=== PATIENT | female | born 1940 | race Caucasian/White ===

== ENCOUNTER 2016-06-17 08:05 | Emergency (ER) ==
--- NOTE | 2016-06-17 09:15 | PROVIDER DOCUMENTATION ---
HPI-Head Injury - General Source: patient - History of Present Illness-Head Injury Head Injury Location: reports: frontal Other injuries associated with incident:: reports: neck Quality of Pain: reports: dull Severity: reports: moderate Onset/Duration: reports: abrupt, this morning Timing: reports: still present Method of Injury: reports: direct blow, fell Any recent trauma/injury?: reports: none Loss of Consciousness: no loss of consciousness Modifying Factors: improves with: nothing Injury Associated Symptoms: reports: back/neck pain, chest pain, headaches, nausea. denies: dizziness, shortness of breath, vomiting Locality of Occurance: Home Similar Symptoms Previously?: No Recently seen or treated by another doctor?: No <Marco Antonio Montero - Last Filed: 06/17/16 13:04> - General Source: patient Unable to obtain history due to:: urgency <Antoine Melo I - Last Filed: 06/17/16 13:12> - General Chief Complaint: Fall Stated Complaint: FALL, HEAD/NECK PAIN Time Seen by Provider: 06/17/16 09:11 Allergies/Adverse Reactions: Patient Allergies Allergy/AdvReac Type Severity Reaction Status Date / Time prochlorperazine edisylate * Allergy Severe SEIZURES Verified 06/17/16 08:40 [From Compazine] codeine [Codeine] Allergy Mild ITCHING Verified 06/17/16 08:40 prochlorperazine maleate * Allergy Mild ITCHING Verified 06/17/16 08:40 [From Compazine] adhesive AdvReac Intermediate ITCHING Verified 06/17/16 08:40 tramadol AdvReac Mild ANXIETY Verified 06/17/16 08:40 tramadol HCl * AdvReac Mild ANXIETY Verified 06/17/16 08:40 [From Ultracet] ketorolac AdvReac Unknown Unknown Verified 06/17/16 08:40 Home Medications: Home Medication List Medication Instructions Recorded Confirmed Last Taken Type Omeprazole [Prilosec] 20 mg PO DAILY@0700 #0 capsule 10/22/13 06/17/16 06/16/16 Rx Ranolazine E.r. [Ranexa] 500 mg PO Q12H #0 tablet 10/22/13 06/17/16 06/16/16 Rx Pramipexole Di-HCl [Pramipexole 0.125 mg PO QHS 04/08/14 06/17/16 06/16/16 History Dihydrochloride] Citalopram [Celexa] 20 mg PO QAM 08/22/14 06/17/16 06/16/16 History Hydrochlorothiazide 25 mg PO QAM 08/22/14 06/17/16 06/16/16 History Mirtazapine [Remeron] 45 mg PO QHS 08/22/14 06/17/16 06/16/16 History Lisinopril 10 mg PO QAM 10/04/14 06/17/16 06/16/16 History Insulin Glargine [Lantus] 20 unit SUBQ QHS 01/09/15 06/17/16 06/16/16 History Insulin Lispro [Humalog] 12 unit SQ AC 01/09/15 06/17/16 06/16/16 History Simvastatin 20 mg PO QHS 01/09/15 06/17/16 06/16/16 History Isosorbide Mononitrate E.r. [Imdur] 30 mg PO QAM 08/08/15 06/17/16 06/16/16 History Cyclobenzaprine [Flexeril] 10 mg PO TID #20 tablet 03/11/16 06/17/16 06/16/16 Rx Diphenhydramine [Benadryl] 25 mg PO PRN PRN 06/17/16 06/17/16 Unknown History Hydrocodone/Acetaminophen [[place] 1 each PO TID 06/17/16 06/17/16 06/16/16 History 10-325 Tablet] - History of Present Illness-Head Injury Nature of Presenting Problem: pt is a 76 y/o F that presents to the ER with headache and neck pain after falling asleep on toilet and landing face first. She denies any loc. She has no bruising or lacerations. She has a long standing history of falling (Marco Antonio Montero) Review of Systems - Adult - REVIEW OF SYSTEMS - ADULT Constitutional: reports: no symptoms reported Eyes: denies: decreased vision, blurred vision, double vision Ears, Nose, Mouth & Throat: denies: ear discharge, epistaxis, mouth/dental pain , mouth swelling Cardiovascular: denies: chest pain, palpitations Respiratory: reports: no symptoms reported Gastrointestinal: reports: nausea, vomiting. denies: abdominal pain, diarrhea Genitourinary: reports: no symptoms reported Musculoskeletal: reports: neck pain. denies: back pain, joint pain Integumentary: reports: no symptoms reported Neurological: reports: headache/migraines. denies: dizziness/vertigo, numbness , tremors Psychiatric: reports: no symptoms reported Endocrine: reports: no symptoms reported Hematologic/Lymphatic: reports: no symptoms reported Allergic/Immunologic: reports: no symptoms reported All Other Systems: Reviewed and Negative <Marco Antonio Montero - Last Filed: 06/17/16 13:04> Past History - Adult - PAST MEDICAL HISTORY-ADULT Review of Records: reports: Old Records Reviewed, Nursing Assessment Review, Medications Reviewed Cardiovascular: reports: CHF, HTN, hyperlipidemia, murmur (heart) Respiratory: reports: COPD Gastrointestinal: reports: GERD Musculoskeletal: reports: arthritis, chronic pain, neck/back injury Neurological: reports: Seizures/Epilepsy Psychiatric: reports: anxiety, depression Endocrine/Immune: reports: Diabetes Other Conditions: reports: MRSA - PRIOR SURGERIES/PROCEDURES Surgical/Procedure History: reports: 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), hysterectomy, orthopedic (extremity), back/neck (neck and back Sx), other (tumors removed from the left arm and) - IMMUNIZATION STATUS Childhood Immunizations: See Nurse Assessment Flu Vaccine: See Nurse Assessment - FAMILY HISTORY Family History: reviewed, not pertinent, mental illness (suffers from depression ) - SOCIAL HISTORY Smoking: non-smoker Living Situation: family <Marco Antonio Montero - Last Filed: 06/17/16 13:04> Physical Exam- Neurological - Physical Exam-Neuro Initial Vital Signs Reviewed: Yes General Appearance: alert, no apparent distress Eye Exam: bilateral eye: normal inspection, PERRL HENMT: normocephalic/atraumatic, moist mucous membranes, normal ENT inspection Head Injury: other. negative: Cleaning's Sign, contusions, ecchymosis, lacerations, swelling Neck: other (c-collar applied [employer]) Respiratory: chest non-tender, lungs clear, normal breath sounds, no respiratory distress, no accessory muscle use Cardiovascular: regular rate, rhythm, no edema, no murmur Abdominal Exam: normal bowel sounds, non tender, soft, no organomegaly, no pulsatile mass Extremity: normal range of motion, non-tender, normal inspection, normal capillary refill, pelvis stable braid cutter Exam: normal hearing, normal speech, PERRL Motor/Sensory: no motor deficit, no sensory deficit Neurologic: braid cutter II-XII nml as tested, no motor/sensory deficits Integumentary: normal color, normal turgor, warm/dry Psych/Mental Status: normal mood/affect, normal thought content, normal thought process, oriented x 3 - Glascow Coma Scale Best Eye Response: (4) open spontaneously Best Verbal Response: (3) inappropriate words Total Glascow Score: 15 <Marco Antonio Montero - Last Filed: 06/17/16 13:04> Progress - REASSESSMENT Reassessment #1 Time Reassessed: 13:04 Status: improving Reassessment Comment: Bp improving - CT/MRI 1 CT Study: Head Impression: Normal CT Results: nml per 2 CT Study: Cervical Spine Impression: Abnormal CT Results: postsurgical changes, DDD, no fx <Marco Antonio Montero - Last Filed: 06/17/16 13:04> <Antoine Melo I - Last Filed: 06/17/16 13:12> - PLAN OF CARE/RESULTS Progress/Plan/Lab Results: plan of care-head/cspine Vital Signs Temp Pulse Resp BP Pulse Ox 06/17/16 08:14 98.2 F 53 L 18 207/93 99 prochlorperazine edisylate * [From Compazine] Allergy (Severe, Verified 08:40) SEIZURES codeine [Codeine] Allergy (Mild, Verified 06/17/16 08:40) ITCHING prochlorperazine maleate * [From Compazine] Allergy (Mild, Verified 06/17/16 08: 40) ITCHING adhesive Adverse Reaction (Intermediate, Verified 06/17/16 08:40) ITCHING tramadol Adverse Reaction (Mild, Verified 06/17/16 08:40) ANXIETY tramadol HCl * [From Ultracet] Adverse Reaction (Mild, Verified 06/17/16 08:40) ANXIETY ketorolac Adverse Reaction (Unknown, Verified 06/17/16 08:40) Unknown "ANXIETY ATTACK AND SHAKING" Omeprazole [Prilosec] 20 mg PO DAILY@0700 #0 capsule 10/22/13 Ranolazine E.r. [Ranexa] 500 mg PO Q12H #0 tablet 10/22/13 Pramipexole Di-HCl [Pramipexole Dihydrochloride] 0.125 mg PO QHS 04/08/14 Citalopram [Celexa] 20 mg PO QAM 08/22/14 Hydrochlorothiazide 25 mg PO QAM 08/22/14 Mirtazapine [Remeron] 45 mg PO QHS 08/22/14 Lisinopril 10 mg PO QAM 10/04/14 Insulin Glargine [Lantus] 20 unit SUBQ QHS 01/09/15 Insulin Lispro [Humalog] 12 unit SQ AC 01/09/15 Simvastatin 20 mg PO QHS 01/09/15 Isosorbide Mononitrate E.r. [Imdur] 30 mg PO QAM 08/08/15 Cyclobenzaprine [Flexeril] 10 mg PO TID #20 tablet 03/11/16 Diphenhydramine [Benadryl] 25 mg PO PRN PRN 06/17/16 Hydrocodone/Acetaminophen [[place] 10-325 Tablet] 1 each PO TID 06/17/16 Orders Category Date Time Status HEAD/C-SPINE W/O CONTRAST [CT] Stat Exams 06/17/16 08:12 Draft pt will be d/c home, bp improved, pt was clinically and neurologically stable ( Marco Antonio Montero) Departure - Departure Time of Disposition Order: 13:05 Certified Medical Emergency: Emergent <Marco Antonio Montero - Last Filed: 06/17/16 13:04> <Antoine Melo I - Last Filed: 06/17/16 13:12> - Departure DIAGNOSIS: Uncontrolled hypertension Head injury Qualifiers: Encounter type: initial encounter Qualified Code(s): S09.90XA - Unspecified injury of head, initial encounter Neck strain Qualifiers: Encounter type: initial encounter Qualified Code(s): S16.1XXA - Strain of muscle, fascia and tendon at neck level, initial encounter Fall from toilet seat Qualifiers: Encounter type: initial encounter Qualified Code(s): W18.11XA - Fall from or off toilet without subsequent striking against object, initial encounter Disposition: HOME 01 Condition: Stable Additional Instructions: T ED Follow Up Instructions: You have been treated by a care provider in the Emergency Department. These instructions are being provided to you so you can have an understanding of how to care for yourself upon discharge. Upon discharge from the Emergency Department, you are responsible for making arrangements for follow-up care by a physician of your choice. Take all prescribed medications as directed. Return to the Emergency Department immediately for any new or worsening symptoms. You may call the Physician Referral phone number at [phone] to obtain a list of Physicians who are taking new patients. Referrals: Benny Metcalf MD [Primary Care Provider] - Call for Appoint. 1-2days Instructions: Head Injury, Adult, Cervical Strain and Sprain with Rehab- SportsMed, Hypertension Attestation - Scribe Verification/Attestation Scribe:: Marco Antonio Montero Acting as Scribe for:: Antoine Melo Scribe documention review:: This chart was documented by a scribe and accurately reflects the service the provider performed and the decisions made by the provider. <Marco Antonio Montero - Last Filed: 06/17/16 13:04> Physician Attestation - Physician Attestation I, the provider, attest to the following statement:: Antoine Melo Physician documentation Attestation:: This documentation recorded by the scribe accurately reflects the service I personally performed and the decisions made by me. <Marco Antonio Montero - Last Filed: 06/17/16 13:04> - Physician Attestation I, the provider, attest to the following statement:: Antoine Melo Physician documentation Attestation:: This documentation recorded by the scribe accurately reflects the service I personally performed and the decisions made by me. <Antoine Melo I - Last Filed: 06/17/16 13:12>
--- NOTE | 2016-06-17 09:20 | Diag Imaging Result Document ---
PROCEDURE NAME: HEAD/C-SPINE W/O CONTRAST - 06/17/2016 CT HEAD WITHOUT CONTRAST: A dose-reduction protocol was used. COMPARISON: 06/11/2015. FINDINGS: There are mild atrophic changes similar to the previous exam. There is no evidence of infarct, although acute infarcts may not be immediately visible. There is no evidence of intracranial hemorrhage, mass effect, or midline shift. There is no skull fracture. IMPRESSION: No evidence of intracranial injury. No intracranial hemorrhage or mass effect. CT CERVICAL SPINE WITHOUT CONTRAST: A dose-reduction protocol was used. Axial and reformatted sagittal and coronal images are obtained. COMPARISON: 04/02/2015. FINDINGS: There are postsurgical changes of anterior fusion at C3-4-5-6, similar to the previous exam. 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 There is severe degenerative disease involving multilevel facets. There is 2 mm anterolisthesis at C6-7 which likely relates to stiffness associated with the above-mentioned fusion combination with severe degenerative changes of the C6-7 facets. There is no other subluxation identified. There is no fracture identified. There are postsurgical changes of multilevel posterior decompression noted at the upper thoracic spine. IMPRESSION: Postsurgical changes of anterior fusion at C3-4-5-6. 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 Severe degenerative disease involving multilevel facets, particularly at C6-7. 2 mm anterolisthesis at C6-7 which likely relative stiffness above this level from the fusion in combination with severe facet degeneration at this level. No evidence of injury to the cervical spine otherwise. No evidence of fracture. [facility]
[2016-06-17 10:25] LABS: MANUAL DIFF NEEDED? NO
[2016-06-17 10:28] LABS: BASO% 0.7 % (0.0-0.8); EOS# 0.17 X1000 (0.0-0.7); EOS% 2.9 % (0.0-10.0); HEMATOCRIT 34.1 % (37.0-47.0); HEMOGLOBIN 10.8 g/dL (12.0-16.0); IMM GRAN# 0.02 X1000 (0.0-0.04); IMM GRAN% 0.3 % (0.0-0.5); LYMPH# 1.81 X1000 (1.2-3.4); MCH 29.7 PG (27-31); MCHC 31.7 g/dL (33-37); MCV 93.7 FL (81-99); MONO# 0.48 X1000 (0.11-0.59); MONO% 8.2 % (1.7-9.3); MPV 10.4 FL (7.4-10.4); NEUT% 56.9 % (42.2-75.2); PLT 177 X1000 (130-400); RBC 3.64 XMIL (4.2-5.4)
[2016-06-17] MEDS ORDERED: NITROGLYCERIN LINGUAL SPRAY SL PRN (10:49)
[2016-06-17] MEDS ORDERED: CATAPRES PO ONE (10:50)
[2016-06-17 10:53] LABS: CALCIUM 9.2 mg/dL (8.8-10.2); POTASSIUM 5.7 mmol/L (3.5-5.1); TOTAL BILIRUBIN 0.22 mg/dL (0.20-1.00); TOTAL PROTEIN 6.7 g/dL (6.3-8.3)
[2016-06-17] MEDS ORDERED: NITROGLYCERIN ONE (10:55)
--- NOTE | 2016-06-17 13:52 | EKG Report ---
Test Performed on : 06/17/2016 11:03:54 AM Test Reason : ED. Not ordered in [place] Blood Pressure : / mmHG Vent. Rate : 053 BPM Atrial Rate : 053 BPM P-R Int : 156 ms QRS Dur : 078 ms QT Int : 442 ms P-R-T Axes : 077 -21 030 degrees QTc Int : 414 ms Sinus bradycardia. with sinus arrhythmia. Septal infarct , age undetermined Abnormal ECG When compared with ECG of 12-MAR-2016 15:25, Questionable change in QRS duration Unconfirmed Result
[2016-06-17] MEDS ORDERED: TORADOL IM ONE (14:00)
[2016-06-17 14:19] VITALS: BP 182/83
== END 2016-06-17 14:00 | disposition home or self-care (01) ==
LOC: EDBD → ED 08:05
DX: S16.1XXA Strain of muscle, fascia and tendon at neck level, initial encounter (principal); S09.90XA Unspecified injury of head, initial encounter; I10 Essential (primary) hypertension; M54.2 Cervicalgia; R51 Headache; R11.2 Nausea with vomiting, unspecified; I50.9 Heart failure, unspecified; M50.323 Other cervical disc degeneration at C6-C7 level; Z79.899 Other long term (current) drug therapy; E78.5 Hyperlipidemia, unspecified; J44.9 Chronic obstructive pulmonary disease, unspecified; K21.9 Gastro-esophageal reflux disease without esophagitis; M19.90 Unspecified osteoarthritis, unspecified site; G89.29 Other chronic pain; E11.9 Type 2 diabetes mellitus without complications; F41.9 Anxiety disorder, unspecified; F32.9 Major depressive disorder, single episode, unspecified; Z79.4 Long term (current) use of insulin; Z86.14 Personal history of Methicillin resistant Staphylococcus aureus infection; W18.11XA Fall from or off toilet without subsequent striking against object, initial encounter
CPT/HCPCS: 70450; 72125; 80053; 85025; 93005

== ENCOUNTER 2016-06-22 16:00 | Inpatient (IN) ==
[2016-06-22] MEDS ORDERED: DILAUDID IV ONE (16:26)
[2016-06-22] MEDS ORDERED: ZOFRAN IV ONE (16:26)
--- NOTE | 2016-06-22 16:38 | PROVIDER DOCUMENTATION ---
HPI-General Adult - General Chief Complaint: Low Blood Sugar Stated Complaint: Low Blood Sugar Time Seen by Provider: 06/22/16 16:04 Source: patient Allergies/Adverse Reactions: Patient Allergies Allergy/AdvReac Type Severity Reaction Status Date / Time prochlorperazine edisylate * Allergy Severe SEIZURES Verified 06/22/16 16:17 [From Compazine] codeine [Codeine] Allergy Mild ITCHING Verified 06/22/16 16:17 prochlorperazine maleate * Allergy Mild ITCHING Verified 06/22/16 16:17 [From Compazine] adhesive AdvReac Intermediate ITCHING Verified 06/22/16 16:17 tramadol AdvReac Mild ANXIETY Verified 06/22/16 16:17 tramadol HCl * AdvReac Mild ANXIETY Verified 06/22/16 16:17 [From Ultracet] ketorolac AdvReac Unknown Unknown Verified 06/22/16 16:17 Home Medications: Home Medication List Medication Instructions Recorded Confirmed Last Taken Type Omeprazole [Prilosec] 20 mg PO DAILY@0700 #0 capsule 10/22/13 06/22/16 06/16/16 Rx Ranolazine E.r. [Ranexa] 500 mg PO Q12H #0 tablet 10/22/13 06/22/16 06/16/16 Rx Pramipexole Di-HCl [Pramipexole 0.125 mg PO QHS 04/08/14 06/22/16 06/16/16 History Dihydrochloride] Citalopram [Celexa] 20 mg PO QAM 08/22/14 06/22/16 06/16/16 History Hydrochlorothiazide 25 mg PO QAM 08/22/14 06/22/16 06/16/16 History Mirtazapine [Remeron] 45 mg PO QHS 08/22/14 06/22/16 06/16/16 History Lisinopril 10 mg PO QAM 10/04/14 06/22/16 06/16/16 History Insulin Glargine [Lantus] 20 unit SUBQ QHS 01/09/15 06/22/16 06/16/16 History Insulin Lispro [Humalog] 12 unit SQ AC 01/09/15 06/22/16 06/16/16 History Simvastatin 20 mg PO QHS 0906/22/16 06/16/16 History Isosorbide Mononitrate E.r. [Imdur] 30 mg PO QAM 08/08/15 06/22/16 06/16/16 History Cyclobenzaprine [Flexeril] 10 mg PO TID #20 tablet 03/11/16 06/22/16 06/16/16 Rx Diphenhydramine [Benadryl] 25 mg PO PRN PRN 06/17/16 06/22/16 Unknown History Hydrocodone/Acetaminophen [Buxton 1 each PO TID 06/17/16 06/22/16 06/16/16 History 10-325 Tablet] - History of Present Illness -Gen Adult Nature of Presenting Problems: 76 year old WF presents with c/o low blood sugar. pt was found by EMS unresponsive in bed, they performed a BGand it was in the 50's, they gave her oral glucose and called EMS. EMS found her BG to be 64, gave glucagon and her LOC increased. upon arrival here, BG 109. when asked what brings her to the ED, she reports she has been sick for 2 weeks. she reports syncopal episodes on almost a daily basis, last of which was this morning, when she awoke on the floor of her kitchen. she reports last recollection she was pouring a cup of coffee. pt reports she feels short of breath with palpitations in the chest just prior to losing consciousness. pt reports she has been taking her insulin regularly and has been eating. her AM BS today with 150. she reports she did not recall eating lunch or performing a BG prior to lunch. associated symptoms include generalized weakness with difficulty walking. pt reports she normally walks with a walker and it has become more difficult over the last 2 weeks. denies fever, chills, nausea, vomiting, diarrhea. pt reports low back pain with these frequent falls, she reports a history of chronic low back pain and has had 22 spinal surgeries. Location of Pain/Injury: reports: back Pain Radiation: reports: no radiation Quality of Pain: reports: aching, dull Severity: reports: mild, moderate Onset/Duration: reports: other (2 weeks) Timing: reports: still present, constant, getting worse Context/Activities at Onset: reports: other (fall/syncope) Modifying Factors: improves with: nothing. worse with: analgesics (pt reports she takes Buxton 10 without relief) Associated Symptoms: reports: back/neck pain Similar Symptoms Previously?: Yes Recently seen or treated by another doctor?: No - Diabetes Related Context Context: reports: low blood sugar Review of Systems - Adult - REVIEW OF SYSTEMS - ADULT Constitutional: reports: no symptoms reported. denies: chills, fever, fatique, weight gain, weight loss Eyes: reports: no symptoms reported. denies: discharge, blurred vision, double vision, redness Ears, Nose, Mouth & Throat: reports: no symptoms reported. denies: ear discharge, ear pain, nose pain, loose teeth, throat pain, throat swelling Cardiovascular: reports: see HPI, palpitations, syncope. denies: chest pain, edema, heart murmur, irregular heart rate, orthopnea, poor circulation, PND Respiratory: reports: see HPI, shortness of breath. denies: chronic cough, cough, wheezing Gastrointestinal: reports: no symptoms reported. denies: abdominal pain, hematemesis, constipation, diarrhea, difficulty swallowing, frequent heartburn, nausea, poor appetite, rectal bleeding, vomiting Genitourinary: reports: no symptoms reported. denies: dysuria, hematuria, urgency Musculoskeletal: reports: see HPI, back pain. denies: bone pain, frequent leg cramps, joint pain, joint swelling, muscle aches, muscle weakness, neck pain Integumentary: reports: no symptoms reported. denies: hives, itching, rash, skin sores/ulcer Neurological: reports: see HPI, dizziness/vertigo, syncope. denies: ataxia, headache/migraines, loss of balance, numbness, paresthesia, seizure, slurred speech, tremors Psychiatric: reports: no symptoms reported Endocrine: reports: no symptoms reported. denies: change in skin pigment, cold intolerance, heat intolerance, increased thirst Hematologic/Lymphatic: reports: no symptoms reported. denies: blood clots, low blood count, prolonged bleeding, swollen lymph nodes Allergic/Immunologic: reports: no symptoms reported. denies: frequent infections All Other Systems: Reviewed and Negative Past History - Adult - PAST MEDICAL HISTORY-ADULT Review of Records: reports: Old Records Reviewed, Nursing Assessment Review, Medications Reviewed, Social history reviewed & non-contributory. 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 - PRIOR SURGERIES/PROCEDURES Surgical/Procedure History: reports: 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 negative: mild distress, moderate distress, severe distress, lethargic, slow to respond, obtunded, combative - EYES Eyes: PERRL/EOMI, pink conjunctivae. negative: conjuctival exudate, EOM palsy, meningismus, pale conjunctivae, photophobia, sclera injected, scleral icterus, subconjunctival hemorrhage, sunken eyes - HEAD, EARS, NOSE, MOUTH & THROAT HENMT: normocephalic/atraumatic, moist mucous membranes, normal ENT inspection - NECK Neck: non-tender, full range of motion, supple, normal inspection. negative: C- spine tenderness, limited range of motion, tender lateral, tender midline - RESPIRATORY Respiratory: chest non-tender, lungs clear, normal breath sounds, no pleuratic chest pain, no respiratory distress, no accessory muscle use. negative: respiratory distress, decreased breath sounds, accessory muscle use, crackles, rales, rhonchi, stridor, wheezing - CARDIOVASCULAR Cardiovascular: normal peripheral pulses, regular rate, rhythm, no edema, no gallop, no JVD, no murmur. negative: JVD, bradycardia, tachycardia, diastolic murmur, systolic murmur, gallop/S3, gallop/S4 - CHEST (BREASTS) Chest/Breast: deferred - GASTROINTESTINAL (ABDOMEN) Abdominal Exam: normal bowel sounds, non tender, soft, no organomegaly. negative: abnormal bowel sounds, distended, guarding, rigid, rebound, tenderness , hernia, mass, hepatomegaly, spleenomegaly, McBurney's point tenderness, Dailey 's sign, obturator sign, psoas, Rovsing's sign - GENITOURINARY Female Genitalia/Pelvic Exam: deferred Rectal Exam: deferred - LYMPHATIC Lymphatic: no adenopathy - MUSCULOSKELETAL Back Exam: normal inspection, no CVA tenderness, vertebral tenderness (diffuse vertebral tenderness, upon exam, pt reports this is her chronic backpain, she denies any new back pain.). negative: no vertebral tenderness, CVA tenderness, decreased range of motion, swelling Extremity: normal range of motion, non-tender, normal gait, no pedal edema, no calf tenderness, normal capillary refill, pelvis stable, deformity (LUE with nerve damage). negative: normal inspection, abnormal NV exam, calf tenderness, erythema, inflammation, joint effusion, pulse deficit, pedal edema, slow capillary refill, swelling, tenderness Peripheral Pulses: radial (R): 3+, radial (L): 3+, dorsalis-pedis (R): 3+, dorsalis-pedis (L): 3+ - SKIN Integumentary: normal color, normal turgor, warm/dry. negative: abrasion(s), pallor, petechiae, purpura, rash, swelling - NEUROLOGIC Neurologic: collaborative teacher II-XII nml as tested, grossly normal, no motor/sensory deficits . negative: focal weakness, motor weakness, sensory deficit - PSYCHIATRIC Psych/Mental Status: normal mood/affect, normal thought content, normal thought process, oriented x 3 Progress - PLAN OF CARE/RESULTS Progress/Plan/Lab Results: Laboratory Tests 06/22/16 06/22/16 06/22/16 17:15 18:15 18:15 WBC 6.19 RBC 3.44 L Hgb 10.3 L Hct 31.8 L MCV 92.4 MCH 29.9 MCHC 32.4 L RDW Std Deviation 12.9 Plt Count 160 MPV 10.4 Immature Gran % (Auto) 0.0 Neut % (Auto) 71.5 Lymph % (Auto) 18.3 L Callahan % (Auto) 8.7 Eos % (Auto) 1.0 Baso % (Auto) 0.5 Immature Gran # (Auto) 0.00 Neut # (Auto) 4.43 Lymph # (Auto) 1.13 L Callahan # (Auto) 0.54 Eos # (Auto) 0.06 Baso # (Auto) 0.03 PT INR PTT (Actin FS) Specimen Type ARTERIAL Sample Site R BRACHIAL pH 7.32 L pCO2 48 H pO2 78 HCO3 23.5 Base Excess -1.7 Oxyhemoglobin 93.7 L ABG O2 Sat (Calculated) 14.3 L ABG O2 Saturation 96.9 ABG Carboxyhemoglobin 1.50 ABG Methemoglobin 1.7 H Aristides Test NO A-a O2 Difference 12.0 Total Hemoglobin 10.8 L Lactate 1.70 Blood Gas Modality ROOM AIR FiO2 % 21.0 Sodium Potassium Chloride Carbon Dioxide Anion Gap BUN Creatinine Estimated GFR/1.73 m2 BUN/Creatinine Ratio Glucose Calculated Osmolality Calcium Total Bilirubin AST ALT Alkaline Phosphatase Creatine Kinase Troponin T Total Protein Albumin Globulin Albumin/Globulin Ratio Plasma Lactate Urine Source Urine Color Urine Turbidity Urine pH Ur Specific [place] Urine Protein Ur Glucose (Stick) Ur Ketones (Stick) Urine Blood Urine Nitrite Urine Bilirubin Urobilinogen Dipstick Urine Leukocytes Urine Opiates Screen Ur Oxycodone Screen Ur Methadone, Qual Ur Barbiturates Screen Ur Phencyclidine Scrn Ur Amphetamines Screen U Benzodiazepines Scrn Urine Cocaine Screen U Cannabinoids Screen Plasma/Serum Ethyl Alc Acetone Level 06/22/16 06/22/16 06/22/16 18:15 18:15 18:15 WBC RBC Hgb Hct MCV MCH MCHC RDW Std Deviation Plt Count MPV Immature Gran % (Auto) Neut % (Auto) Lymph % (Auto) Callahan % (Auto) Eos % (Auto) Baso % (Auto) Immature Gran # (Auto) Neut # (Auto) Lymph # (Auto) Callahan # (Auto) Eos # (Auto) Baso # (Auto) PT 10.7 INR 1.01 PTT (Actin FS) 23.8 Specimen Type Sample Site pH pCO2 pO2 HCO3 Base Excess Oxyhemoglobin ABG O2 Sat (Calculated) ABG O2 Saturation ABG Carboxyhemoglobin ABG Methemoglobin Aristides Test A-a O2 Difference Total Hemoglobin Lactate Blood Gas Modality FiO2 % Sodium 134 L Potassium 4.8 Chloride 97 L Carbon Dioxide 23 L Anion Gap 14 BUN 21 Creatinine 1.0 H Estimated GFR/1.73 m2 54 BUN/Creatinine Ratio 21 Glucose 263 H Calculated Osmolality 280 Calcium 7.7 L Total Bilirubin 0.23 AST 13 ALT 15 Alkaline Phosphatase 63 Creatine Kinase 34 Troponin T Total Protein 6.0 L Albumin 3.6 Globulin 2.4 Albumin/Globulin Ratio 1.5 Plasma Lactate 2.0 Urine Source Urine Color Urine Turbidity Urine pH Ur Specific [place] Urine Protein Ur Glucose (Stick) Ur Ketones (Stick) Urine Blood Urine Nitrite Urine Bilirubin Urobilinogen Dipstick Urine Leukocytes Urine Opiates Screen Ur Oxycodone Screen Ur Methadone, Qual Ur Barbiturates Screen Ur Phencyclidine Scrn Ur Amphetamines Screen U Benzodiazepines Scrn Urine Cocaine Screen U Cannabinoids Screen Plasma/Serum Ethyl Alc Acetone Level NEGATIVE 06/22/16 06/22/16 06/22/16 18:15 19:25 19:25 WBC RBC Hgb Hct MCV MCH MCHC RDW Std Deviation Plt Count MPV Immature Gran % (Auto) Neut % (Auto) Lymph % (Auto) Callahan % (Auto) Eos % (Auto) Baso % (Auto) Immature Gran # (Auto) Neut # (Auto) Lymph # (Auto) Callahan # (Auto) Eos # (Auto) Baso # (Auto) PT INR PTT (Actin FS) Specimen Type Sample Site pH pCO2 pO2 HCO3 Base Excess Oxyhemoglobin ABG O2 Sat (Calculated) ABG O2 Saturation ABG Carboxyhemoglobin ABG Methemoglobin Aristides Test A-a O2 Difference Total Hemoglobin Lactate Blood Gas Modality FiO2 % Sodium Potassium Chloride Carbon Dioxide Anion Gap BUN Creatinine Estimated GFR/1.73 m2 BUN/Creatinine Ratio Glucose Calculated Osmolality Calcium Total Bilirubin AST ALT Alkaline Phosphatase Creatine Kinase Troponin T < 0.010 Total Protein Albumin Globulin Albumin/Globulin Ratio Plasma Lactate Urine Source CATH Urine Color YELLOW Urine Turbidity CLEAR Urine pH 6.0 Ur Specific [place] 1.014 Urine Protein NEGATIVE Ur Glucose (Stick) TRACE Ur Ketones (Stick) NEGATIVE Urine Blood NEGATIVE Urine Nitrite NEGATIVE Urine Bilirubin NEGATIVE Urobilinogen Dipstick NORMAL Urine Leukocytes NEGATIVE Urine Opiates Screen PRESUMPTIVE POSITIVE A Ur Oxycodone Screen NONE DETECTED Ur Methadone, Qual NONE DETECTED Ur Barbiturates Screen NONE DETECTED Ur Phencyclidine Scrn NONE DETECTED Ur Amphetamines Screen NONE DETECTED U Benzodiazepines Scrn PRESUMPTIVE POSITIVE A Urine Cocaine Screen NONE DETECTED U Cannabinoids Screen NONE DETECTED Plasma/Serum Ethyl Alc Acetone Level Orders Category Date Time Status Cardiac Monitoring DIRECTED Care 06/22/16 16:21 Active Finger Stick Blood Sugar (ED) DIRECTED Care 06/22/16 16:21 Active Finger Stick Blood Sugar (ED) Q30M PRN Care 06/22/16 16:20 Active Saline Loc NOW Care 06/22/16 16:21 Active CHEST-2 VIEWS [RAD] Stat Exams 06/22/16 16:24 Completed HEAD W/O CONTRAST [CT] Stat Exams 06/22/16 16:24 Draft ABG [RESP] Routine Lab 06/22/16 17:15 Completed ACETONE SERUM [CHEM] Stat Lab 06/22/16 18:15 Completed ALCOHOL BLOOD Stat Lab 06/22/16 18:15 Completed BLOOD CULTURE [BLDCUL] Stat Lab 06/22/16 17:49 Results CBC WITH ELECTRONIC DIFF [HEME] Stat Lab 06/22/16 18:15 Completed CK PROFILE [SP CHEM] Stat Lab 06/22/16 18:15 Completed COMPREHENSIVE METABOLIC PANEL [CHEM] Stat Lab 06/22/16 18:15 Completed LACTATE, PLASMA [CHEM] Stat Lab 06/22/16 18:15 Completed PROTIME WITH INR [COAG] Stat Lab 06/22/16 18:15 Completed PTT [COAG] Stat Lab 06/22/16 18:15 Completed TROPONIN T Stat Lab 06/22/16 18:15 Completed URINALYSIS W/POSS RFLX CULT [URINALYSIS] Stat Lab 06/22/16 19:25 Results URINE DRUG SCREEN Stat Lab 06/22/16 19:25 Completed Hydromorphone [Dilaudid] Med 06/22/16 16:26 Discontinued 0.5 mg IV NOW ONE Ondansetron [Zofran] Med 06/22/16 16:26 Discontinued 4 mg IV NOW ONE Pulse Oximetry Stat Oth 06/22/16 16:21 Active EKG [EKG] Stat Ther 06/22/16 16:21 Ordered Vital Signs - 24 hr 06/22/16 06/22/16 06/22/16 16:05 16:30 17:23 Temperature 97.9 F Pulse Rate 60 67 71 Respiratory 16 Rate Blood Pressure 152/62 158/64 O2 Sat by Pulse 97 96 99 Oximetry 06/22/16 17:42 Temperature Pulse Rate 73 Respiratory 17 Rate Blood Pressure 158/64 O2 Sat by Pulse 99 Oximetry - REASSESSMENT Reassessment #1 Time Reassessed: 19:54 Status: improving (remains awake, alert. BG stable) - XRAY 1 XRAY Study: Chest Impression: Normal (no acute abnormality per Dr. Page) - CT/MRI 1 CT Study: Head Impression: Normal (no hemorrhage, mild atrophy. per Dr. Page) - CONSULTS/PCP/HOSPITALIST Notification #1 *Consult/PCP/Hospitalist*: Dr. Baker Time Discussed: 19:53 Consult Disposition: Will see in ED, Admit Departure - Departure Time of Disposition Order: 19:51 DIAGNOSIS: Syncope and collapse, Hypoglycemia Disposition: ADMITTED INPATIENT 09 Certified Medical Emergency: Emergent Condition: Stable Attestation - Physician/ GEN Attestation Patient care was provided by Advanced Practice Provider:: Yes Advanced Practice Provider:: Janna Lehman Advanced Practice Provider documentation review:: The Mid-level provider documentation, treatment plan and medical decision making was reviewed by the physician who agrees with all treatment and medical decision making by the MLP.
--- NOTE | 2016-06-22 17:14 | Diag Imaging Result Document ---
PROCEDURE NAME: CHEST-2 VIEWS - 06/22/2016 FRONTAL AND LATERAL CHEST, TWO VIEWS: COMPARISON: 10/04/2015. FINDINGS: The lungs are well expanded. The heart is not enlarged. The vessels are not distended. No pneumonia. No pleural effusions. There has been extensive surgery to the lower thoracic and lumbar spine. There has also been prior surgery to the lower neck. IMPRESSION: No acute abnormality.
[2016-06-22 17:18] LABS: ALLEN TEST NO; BE -1.7 mmoll (-3.0-3.0); BLOOD TYPE ARTERIAL; DRAW SITE R BRACHIAL; METHB 1.7 % (0.0-1.5); MODALITY ROOM AIR; O2(CT) 14.3 mL/dL (15.0-23.0); PCO2(98.6) 48 mmHg (35-45); PO2(98.6) 78 mmHg (60-100); SAMPLE BLOOD; SAO2 96.9 % (95.0-100.0); THB 10.8 g/dL (11.5-17.4); pH(98.6) 7.32 (7.35-7.45)
--- NOTE | 2016-06-22 18:00 | Diag Imaging Result Document ---
PROCEDURE NAME: HEAD W/O CONTRAST - 06/22/2016 CT BRAIN WITHOUT CONTRAST: FINDINGS: No parenchymal hemorrhage. No epidural or subdural hematoma. No subarachnoid hemorrhage. Mild atrophy. No mass identified on this noncontrasted exam. No hydrocephalus. No sinus opacification. IMPRESSION: 1. No hemorrhage. 2. Mild atrophy. A preliminary report was given at 5:23 p.m.
[2016-06-22 18:22] LABS: MANUAL DIFF NEEDED? NO
[2016-06-22 18:33] LABS: ACETONE SERUM NEGATIVE (NEGATIVE)
[2016-06-22 18:36] LABS: BASO% 0.5 % (0.0-0.8); EOS# 0.06 X1000 (0.0-0.7); HEMATOCRIT 31.8 % (37.0-47.0); HEMOGLOBIN 10.3 g/dL (12.0-16.0); LYMPH# 1.13 X1000 (1.2-3.4); LYMPH% 18.3 % (20.5-51.1); MCH 29.9 PG (27-31); MCHC 32.4 g/dL (33-37); MCV 92.4 FL (81-99); MONO# 0.54 X1000 (0.11-0.59); MONO% 8.7 % (1.7-9.3); MPV 10.4 FL (7.4-10.4); NEUT% 71.5 % (42.2-75.2); PLT 160 X1000 (130-400); RBC 3.44 XMIL (4.2-5.4)
[2016-06-22 18:46] LABS: AGAP 14; ALBUMIN 3.6 g/dL (3.5-5.0); ALKALINE PHOSPHATASE 63 U/L (32-104); BUN 21 mg/dL (8-22); CALCIUM 7.7 mg/dL (8.8-10.2); CHLORIDE 97 mmol/L (98-107); CK PROFILE 34 U/L (24-173); COSMO 280; GOT 13 U/L (10-30); GPT 15 U/L (10-36); POTASSIUM 4.8 mmol/L (3.5-5.1); SODIUM 134 mmol/L (136-145); TCO2 23 mmol/L (25-35); TOTAL BILIRUBIN 0.23 mg/dL (0.20-1.00)
--- NOTE | 2016-06-22 18:48 | ED EKG INTERP ---
EKG Interpretation - EKG Time of EKG reading by physician:: 18:41 EKG Read and Signed by:: Adelso Gracia EKG Interpretation (*Must complete 3 of following elements*): Abnormal (L axis deviation; Pulmonary disease pattern; Minimal voltage criteria for LVH, may be normal variant; Septal infarct, age undetermined) Rate: 66 Rhythm: NSR Attestation - Scribe Verification/Attestation Scribe:: Feliciano Motley Acting as Scribe for:: Adelso Gracia Scribe documention review:: This chart was documented by a scribe and accurately reflects the service the provider performed and the decisions made by the provider.
[2016-06-22 18:51] LABS: INR 1.01; PROTIME 10.7 Seconds (9.2-11.7); PTT 23.8 Seconds (22.0-36.0)
[2016-06-22 19:31] LABS: URINE CULTURE NEEDED? NO; URINE MICRO REVIEW NEEDED? NO; URINE SOURCE CATH
[2016-06-22 19:51] LABS: BILIRUBIN URINE NEGATIVE (NEGATIVE); BLOOD URINE NEGATIVE (NEGATIVE); COLOR YELLOW; GLUCOSE URINE TRACE mg/dL (NEGATIVE); LEUKOCYTES URINE NEGATIVE (NEGATIVE); NITRITE URINE NEGATIVE (NEGATIVE); PROTEIN URINE NEGATIVE (NEGATIVE); SP GRAVITY URINE 1.014; TURBIDITY URINE CLEAR (CLEAR); UR AMPHETAMINES QUAL NONE DETECTED (NONE DETECT); UR BARBITUATES QUAL NONE DETECTED (NONE DETECT); UR BENZODIAZEPIN QUAL PRESUMPTIVE POSITIVE (NONE DETECT); UR CANNABINOIDS QUAL NONE DETECTED (NONE DETECT); UR COCAINE QUAL NONE DETECTED (NONE DETECT); UR METHADONE QUAL NONE DETECTED (NONE DETECT); UR OPIATES QUAL PRESUMPTIVE POSITIVE (NONE DETECT); UR OXYCODONE QUAL NONE DETECTED (NONE DETECT); UR PCP QUAL NONE DETECTED (NONE DETECT); UROBILINOGEN URINE NORMAL (NORMAL)
[2016-06-22 19:52] LABS: UR EPITHELIAL CELLS <10 /HPF (<10); URINE BACTERIA NEGATIVE /HPF; URINE RBC <10 /HPF (<10); URINE WBC <10 /HPF (<10)
[2016-06-22] MEDS ORDERED: BENADRYL PO PRN (20:50)
[2016-06-22] MEDS: RANEXA PO SCH (21:00)
[2016-06-22] MEDS: ZOCOR PO SCH (21:00)
[2016-06-22] MEDS: MIRAPEX PO SCH (21:00)
[2016-06-22] MEDS: REMERON PO SCH (21:00)
[2016-06-22] MEDS: LANTUS SUBQ SCH (21:00)
[2016-06-22] MEDS ORDERED: APRESOLINE IV ONE (21:52)
[2016-06-22] MEDS: NORCO-10 PO PRN (22:23)
[2016-06-22] MEDS ORDERED: APRESOLINE IV PRN (23:24)
[2016-06-22] MEDS: HUMALOG SUBQ SCH (23:55)
--- NOTE | 2016-06-23 01:49 | HISTORY AND PHYSICAL ---
PRIMARY CARE PROVIDER: Dr. Benny Metcalf. CHIEF COMPLAINT: Falls, weakness and dizziness. HISTORY OF PRESENT ILLNESS: This is a 76-year-old female who presented to the emergency room stating that she has been feeling weird in her chest although she does not necessarily describe a fluttering or palpitations. She states she has just had an odd feeling. This has been accompanied by frequent falls. The patient has had 20+ back and neck surgeries so she did note that the falls may be related to weakness in her lower extremities. She denies any overt loss of consciousness. However, she made remarks such as she was turning to put coffee on the table and the next thing she knew she was on the ground. She is somewhat of a poor historian and is unable to further describe these episodes. She also stated that there was some mention either by her family or by Dr. Metcalf of possible memory loss or dementia. However, during my interview 30 seconds and 1 minute 30 second recall of 3 items were perfect. She is alert and oriented x4 and does not appear to have any short-term memory issues. She also has a diagnosis of coronary artery disease with 2 previous myocardial infarctions, COPD, chronic arthritis, chronic neck and back pain, seizures, anxiety, depression with previous suicidal ideation and inpatient stay for depression, diabetes mellitus type 2 now insulin dependent, and hypertension. A CT scan of her head was obtained in the emergency room which showed mild atrophy and no acute intracranial process. Chest x-ray was also obtained which showed no acute abnormality. Laboratory data on initial exam was grossly normal and the patient will be admitted for further evaluation and treatment. PAST MEDICAL HISTORY: 1. Congestive heart failure. Last ejection fraction was 70-75% on 08/22/2014, likely diastolic in nature. 2. Hypertension. 3. Hyperlipidemia. 4. Coronary artery disease with myocardial infarction x2. 5. COPD. 6. GERD. 7. Arthritis. 8. Chronic neck and back pain with chronic opioid treatment. 9. Seizures. 10. Anxiety with previous notation of chronic benzodiazepine treatment. However, her toxicology screening is positive for benzodiazepines. Her home medication list as reconciled by the ER does not show a benzo as a home medication. 11. Depression. 12. Diabetes mellitus type 2, now insulin dependent. 13. History of MRSA. PREVIOUS SURGICAL HISTORY: 1. Cholecystectomy. 2. Hysterectomy. 3. Benign tumor removal of the left arm. 4. Multiple tumor removals, all benign. 5. Multiple back and neck surgeries in the excess of 20 surgeries. ALLERGIES: Compazine causing seizures and itching. Codeine causing itching. Adhesives causing itching. Ultram causing anxiety. Toradol causing an unknown reaction. FAMILY HISTORY: Positive for drug abuse and alcohol abuse, diabetes mellitus, coronary artery disease, and hypertension. Both of the patient's sons have from myocardial infarction at the age of 32 and 36. She has a daughter in her 50s who had coronary artery disease status post CABG and has also had a CVA. SOCIAL HISTORY: She is a . She lives at home with 2 daughters and 2 grandsons. She denies tobacco, alcohol or illicit drug use or abuse. HOME MEDICATIONS: 1. Prilosec 20 mg p.o. daily. 2. Ranexa 500 mg p.o. daily. 3. Pramipexole. 4. 0.125 mg p.o. at bedtime. 5. Hydrochlorothiazide 25 mg p.o. daily. 6. Celexa 20 mg p.o. daily. 7. Remeron 45 mg p.o. at bedtime. 8. Lisinopril 10 mg p.o. q.a.m. 9. Insulin lispro 12 units subcu a.c. 10. Lantus 20 units subcutaneously at bedtime. 11. Simvastatin 20 mg p.o. at bedtime. 12. Imdur 30 mg p.o. q.a.m. 13. Flexeril 10 mg p.o. t.i.d. 14. Lehr 10 mg 1 p.o. t.i.d. 15. Benadryl 25 mg p.o. p.r.n. An order was placed for nursing for recheck home medication list as the patient did test positive for benzodiazepines and there is not a benzo listed on her home medication list. REVIEW OF SYSTEMS: Fourteen point review of systems conducted with the patient. She complains of dizziness, weakness especially in her legs, nightly headache 7/10, pain in her back and neck for which Lehr does not help very well. She denies chest pain, nausea, vomiting, diarrhea, polydipsia, polyphagia, polyuria, hematemesis, hematuria, dysuria, melena, hematochezia. Other pertinent positives for admission are listed above in the HPI. PHYSICAL EXAMINATION: VITAL SIGNS: Temperature 97.9 degrees, pulse 67, blood pressure 184/73, it was 152/62 on arrival, oxygen saturation 96-99 on room air. GENERAL: Ms. Ponce is a pleasant 76-year-old female lying in the ER stretcher. Answers all questions appropriately. No acute distress. HEENT: Head is atraumatic, normocephalic. Pupils equal, round, react to light. Extraocular eye movement intact. Sclerae is anicteric. Conjunctivae is mildly pale. Oral mucosa is moist. NECK: Supple. No JVD. No thyromegaly. Trachea is midline. CARDIOVASCULAR: Regular rate and rhythm. S1-S2 appreciated. A 1/6 systolic ejection murmur noted. No gallops. No rubs. LUNGS: Clear to auscultation bilaterally. No rhonchi, wheezes or rales. Symmetrical rise and fall with respirations. ABDOMEN: Soft, nondistended, nontender. Bowel sounds present in all 4 quadrants, normoactive. No pulsatile mass. No organomegaly. EXTREMITIES: No clubbing, cyanosis, or edema. 2+ pedal pulses bilaterally. MUSCULOSKELETAL: 5/5 upper extremity strength, 3/5 lower extremity strength, equal bilaterally, normal range of motion. NEUROLOGICAL: Alert and oriented x3. Cranial nerves 2-12 grossly intact. SKIN: Warm, dry, intact. No acute lesions or rash. DIAGNOSTIC DATA: Chest x-ray: NAD. Head CT: Mild atrophy. LABORATORY DATA: Hemoglobin 10.3, hematocrit 31.8. Coagulations within normal limits. ABG: pH 7.32, pCO2 48, PO2 78, bicarb 23.5, this was obtained on room air. Sodium 134, potassium 4.8, chloride 97, carbon dioxide 23, BUN 21, creatinine 1, glucose 263. Urine unremarkable. Toxicology screen positive for opiates and benzos. Acetone level is negative. ASSESSMENT AND PLAN: 1. Falls of questionable etiology. These could be related to near syncopal events, hypoglycemia for which the patient states that she sometimes suffers, oversedation with medications such as Lehr and benzodiazepines, and weakness in her lower extremities related to multiple back surgeries. 2. Chronic renal insufficiency, noted patient is at her baseline. 3. Hypertension. We will treat with hydralazine in the emergency room and continue home medications. We will also add hydralazine 10 mg q.6 hours for systolic blood pressure greater than 160. 4. Diabetes mellitus 2, now insulin dependent. We will continue her long-acting medications. We will check blood sugars q.4 hours, add sliding scale lispro to be treated q.4 hours if blood sugar is greater than 200. 5. Anemia of chronic disease, aware. 6. Chronic neck and back pain. Continue Lehr. 7. Restless legs syndrome. Continue Mirapex. 8. Hyperlipidemia. Continue Zocor. Further recommendations per patient clinical course. Dictated by JEFERSON Davis for Morris Baker MD
[2016-06-23] MEDS: HUMALOG SUBQ SCH ×5 (03:59→21:24)
[2016-06-23 07:24] LABS: CALCIUM 8.5 mg/dL (8.8-10.2); POTASSIUM 5.5 mmol/L (3.5-5.1)
[2016-06-23] MEDS: PRILOSEC PO SCH (08:03)
[2016-06-23] MEDS: NORCO-10 PO PRN ×3 (08:03→21:14)
[2016-06-23 09:25] LABS: MANUAL DIFF NEEDED? NO
[2016-06-23] MEDS: PRINIVIL PO SCH (09:30)
[2016-06-23] MEDS: RANEXA PO SCH ×2 (09:30→21:23)
[2016-06-23] MEDS: IMDUR PO SCH (09:30)
[2016-06-23] MEDS: HYDROCHLOROTHIAZIDE PO SCH (09:30)
[2016-06-23] MEDS: CELEXA PO SCH (09:31)
[2016-06-23 09:32] LABS: BASO% 0.5 % (0.0-0.8); EOS# 0.11 X1000 (0.0-0.7); HEMATOCRIT 34.9 % (37.0-47.0); HEMOGLOBIN 10.9 g/dL (12.0-16.0); LYMPH# 1.63 X1000 (1.2-3.4); LYMPH% 29.8 % (20.5-51.1); MCH 28.9 PG (27-31); MCHC 31.2 g/dL (33-37); MCV 92.6 FL (81-99); MONO# 0.46 X1000 (0.11-0.59); MONO% 8.4 % (1.7-9.3); MPV 10.8 FL (7.4-10.4); NEUT% 59.3 % (42.2-75.2); PLT 168 X1000 (130-400); RBC 3.77 XMIL (4.2-5.4)
[2016-06-23] MEDS: APRESOLINE PO SCH ×2 (14:27→17:37)
--- NOTE | 2016-06-23 15:18 | CONSULTATION ---
DATE OF CONSULTATION: 06/23/2016 PATIENT LOCATION: Room 469B. HISTORY OF PRESENT ILLNESS: Ms. Ponce is 76 years old and she has had some spells of collapse. History from the patient is of uncertain validity. She reports feeling suddenly weak in both legs, weak to the point that she cannot stand and she collapses. Sometimes family catches her. If she goes down to the floor, family is always present and helps her up. She believes that she would not be able to get up without assistance. She reports these episodes occur without altered consciousness, altered awareness, memory gap, incontinence, limb jerking, or other seizure like feature. She reports having "seizures" characterized by a sudden loss of consciousness and postictal somnolence. These have generally been associated with low blood sugars. She reports blood sugar was in the 20s prior to last episode a few days ago, possibly the day before or the day of admission. I have seen her in the office. I saw her in 2012 and 2013 in the hospital. She did not keep office followup. Last recommendation was that she take oxcarbazepine for possible seizure disorder and she did not keep follow up. She told me that she is taking medicine to control seizures now, but she cannot name that medicine. Her home medicine list recorded in the computer for this admission does not include anything that generally would be associated with seizure control. Her urine drug screen was positive for opiates and for benzodiazepines. Her home medicine list includes hydrocodone. She told me that she takes Xanax, but that is not on her home medicine list recorded on the computer. She told me that she takes her medicines herself and that family does not supervise these. Lab work shows anemia, sodium 134, glucose 263, calcium 7.7. There is nothing on the lab that generally would be associated with seizure or encephalopathy. Noncontrast CT of the head is reported to show mild atrophy with nothing focal or acute. PHYSICAL EXAMINATION: On exam, Ms. Ponce is awake, alert, attentive, and appropriate. She is oriented. I attempted bedside cognitive testing but was unsuccessful because of noise, commotion in the room making it unfair to test. Speech is not dysarthric. Language function is intact. Head is unremarkable. She reports discomfort in the neck but there is no meningismus. She has full visual velez. Extraocular movements are full. Facial motility is symmetric. Gag is intact. Tongue is midline. She can hear. She has good shoulder shrug bilaterally. Strength is normal in the arms and legs. She did well on [id number]-qcut and [id number]-rd-[id number] testing bilaterally. She reports good pinprick appreciation over the hands. She has slightly diminished pinprick appreciation in a stocking pattern over the feet. Proprioception is good at the great toe bilaterally. I did not test her gait. Reflexes are 1+ at the knees and ankles bilaterally. IMPRESSIONS: 1. History of spells with reported sudden leg muscle weakness and collapse. I do not have a definite explanation for that. If she does have cognitive impairment, she might also have gait apraxia which would make her unsteady with tendency to fall. She demonstrates good power on bedside testing in the legs now. 2. Reported history of episodes of collapse with question of seizure, hypoglycemia, or both. I do not see medicine for seizure control listed on the current medication list. I am not convinced her episodes are seizures. In years past, there were some features consistent with seizure and we thought best management was to recommend that she take medicine for seizure control. However, I am not sure she is following that recommendation at this time. We might consider EEG when practical, not urgent. 3. Clinical findings of peripheral neuropathy, presumed diabetic neuropathy. On clinical grounds, this does not appear to be sufficient to explain much gait difficulty. 4. Polypharmacy, uncertain medication list, possibility that medications might contribute to some of her problems. 5. Question of cognitive impairment. She might have a mild cognitive impairment syndrome or she might have dementia. In either case, diphenhydramine on her medicine list could contribute adverse anticholinergic effect on cognitive function. 6. Reported history of syncope and near-syncope. This could be aggravated by pramipexole on her medicine list. Other medicines might also contribute. Diabetic dysautonomia might be a consideration, but she does not report lightheadedness. I do not have any urgent suggestion. I will check to see if there is better history about current medicines. Further plans will depend on her clinical course in the hospital. Physical therapy is ordered. Thanks for asking me to see Ms. Ponce. [facility]
--- NOTE | 2016-06-23 17:38 | PROGRESS NOTE ---
DATE: 06/23/2016 SUBJECTIVE: This patient is complaining of neck pain, back pain and generalized weakness, probably this patient has a dementia but I do not have any family members at the bedside to discuss medications and past medical history. Given her history of polypharmacy it is going to be better if I talked to one of the family members to be able to remove some of her medications. OBJECTIVE: Vital Signs: Temperature 97.5 degrees, pulse 85, respiratory rate 18, blood pressure 191/96, oxygen saturation 97 on room air. HEENT: Head normocephalic. No trauma. PERRLA. Neck: Supple. No JVD. No masses. Central trachea. Cardiovascular: RRR. Systolic murmur. Chest: Clear to auscultation. No wheezing. No rales. Abdomen: Soft, obese, nontender, nondistended. Positive bowel sounds. Extremities: No clubbing, no edema, no cyanosis. Neurological: The patient is alert and oriented x3. Decreased lower extremity strength about 3 to 4/5. LABORATORY: WBC 5.4, hemoglobin 10.9, hematocrit 34.9, platelet 168,000. Sodium 134, potassium 5.5, chloride 98, bicarbonate 25, BUN 19, creatinine 1.1, glucose 206, calcium 8.5. ASSESSMENT AND PLAN: 1. Falls of questionable etiology, neurology department evaluated this patient, they do not have any acute recommendation at this moment. They will follow this patient along with us. I think probably this is related to polypharmacy, this patient states that she had at least more than 20 surgeries in the past with problems at the level of her neck and back and probably her lower extremities, weakness related to multiple surgeries. 2. Chronic chronic kidney disease. Apparently this is her baseline. 3. Hyperkalemia. Will monitor. I will repeat the BMP tomorrow morning. 4. Hypertension. I will add hydralazine to her medications. The blood pressure has been high around 180s and 190s. 5. Anemia of chronic disease. Aware. 6. Chronic neck and back pain with multiple surgeries. I will continue with [place]. 7. Restless legs syndrome. Continue with Mirapex. 8. Hyperlipidemia. Continue with Zocor.
[2016-06-23] MEDS: ZOCOR PO SCH (21:23)
[2016-06-23] MEDS: MIRAPEX PO SCH (21:23)
[2016-06-23] MEDS: LANTUS SUBQ SCH (21:24)
[2016-06-23] MEDS: REMERON PO SCH ×2 (21:25→23:02)
[2016-06-23] MEDS ORDERED: NITROGLYCERIN TOP ONE (22:04)
[2016-06-23] MEDS: FLEXERIL PO PRN (23:02)
[2016-06-24] MEDS: HUMALOG SUBQ SCH ×8 (00:08→22:46)
[2016-06-24] MEDS: NORCO-10 PO PRN ×3 (05:20→16:08)
[2016-06-24] MEDS: PRILOSEC PO SCH ×2 (05:33→06:05)
[2016-06-24 06:10] LABS: MANUAL DIFF NEEDED? NO
[2016-06-24 06:20] LABS: BASO% 0.2 % (0.0-0.8); EOS# 0.09 X1000 (0.0-0.7); EOS% 1.6 % (0.0-10.0); HEMATOCRIT 33.4 % (37.0-47.0); HEMOGLOBIN 10.5 g/dL (12.0-16.0); LYMPH# 1.34 X1000 (1.2-3.4); LYMPH% 23.7 % (20.5-51.1); MCH 29.2 PG (27-31); MCHC 31.4 g/dL (33-37); MONO# 0.55 X1000 (0.11-0.59); MONO% 9.7 % (1.7-9.3); MPV 10.6 FL (7.4-10.4); NEUT% 64.8 % (42.2-75.2); PLT 149 X1000 (130-400); RBC 3.59 XMIL (4.2-5.4)
[2016-06-24 06:34] LABS: CALCIUM 8.9 mg/dL (8.8-10.2)
--- NOTE | 2016-06-24 07:41 | EKG Report ---
Test Performed on : 06/23/2016 9:22:52 PM Test Reason : CP Blood Pressure : / mmHG Vent. Rate : 090 BPM Atrial Rate : 090 BPM P-R Int : 168 ms QRS Dur : 074 ms QT Int : 346 ms P-R-T Axes : 067 -26 057 degrees QTc Int : 423 ms Normal sinus rhythm. Septal infarct (cited on or before 17-JUN-2016) Abnormal ECG When compared with ECG of 22-JUN-2016 18:41, (Unconfirmed) Non-specific change in ST segment in Lateral leads Confirmed by Ashley BRADY, Aristides Tran ([id number]) on 06/24/2016 5:21:27 PM
[2016-06-24] MEDS: RANEXA PO SCH ×2 (08:24→22:03)
[2016-06-24] MEDS: CELEXA PO SCH (08:24)
[2016-06-24] MEDS: IMDUR PO SCH (08:24)
[2016-06-24] MEDS: PRINIVIL PO SCH (08:24)
[2016-06-24] MEDS: HYDROCHLOROTHIAZIDE PO SCH (08:25)
[2016-06-24] MEDS: APRESOLINE PO SCH ×3 (08:25→17:49)
--- NOTE | 2016-06-24 12:59 | PROGRESS NOTE ---
DATE: 06/24/2016 Ms. Ponce is awake and alert. She reports no more episodes. I do not have any new history today regarding her home medicines. I am encouraged that she has had a stable course since hospitalization. No new suggestion from neurologic standpoint today. Thanks for asking me to see Ms. Ponce. MTDD
[2016-06-24] MEDS ORDERED: XANAX PO ONE (17:11)
--- NOTE | 2016-06-24 17:25 | PROGRESS NOTE ---
DATE: 06/24/2016 SUBJECTIVE: This patient looks better today. She is still complaining of neck pain and back pain and generalized weakness but compared with yesterday it is much better. The pain yesterday was around 8-9 out of 10 and today it is around 4. She states that her primary care doctor is Dr. Metcalf. No family members at the bedside. She has chronic kidney disease and upon discharge I will send this patient to Nephrology as an outpatient. Neurology Department evaluated this patient today and no new suggestions. OBJECTIVE: Vital Signs: Temperature 98.6 degrees, pulse 92, respiratory rate 16, blood pressure 149/63, O2 saturation 98 on room air. HEENT: Head normocephalic. No trauma. PERRLA. Neck: Supple. No JVD. No masses. Central trachea. Cardiovascular: RRR. Systolic murmur. Chest: Clear to auscultation. No wheezing. No rales. Abdomen: Soft, obese, nontender, nondistended. Positive bowel sounds. Extremities: No clubbing, no edema. No cyanosis. Neurological: The patient is alert and oriented x3. Decreased lower extremity strength is about 3 to 4/5. LABORATORY: WBC 5.6, hemoglobin 10.5, hematocrit 33.4, platelets 149,000. Sodium 135, potassium 5, chloride 99, bicarbonate 22, BUN 22, creatinine 1.4, glucose 159, calcium 8.9. ASSESSMENT AND PLAN: 1. Falls of questionable etiology. Neurology Department is following this patient. They do not have any acute suggestion or recommendations right now. I think this is probably related to polypharmacy and she has been having at least 20 surgeries in the past because of problems at the level of her neck and back, also she has lower extremity weakness probably related to multiple surgeries. 2. Chronic kidney disease. Apparently this is her baseline. She is not following any environmental specialist and I think she should follow a environmental specialist upon discharge. 3. Hyperkalemia. We will monitor. The potassium today is normal. I will continue repeating a BMP every day. 4. Hypertension, stable. Continue with same medications. She has high blood pressure mostly related with pain but once without any kind of pain, the blood pressure normalized. She was placed on hydralazine yesterday. 5. Anemia of chronic disease. Aware. 6. Chronic neck and back pain with multiple surgeries. I will continue with [place]. 7. Restless legs syndrome. Continue with Mirapex. 8. Anxiety. This patient is asking for her Xanax that she has been taking at home. I will restart this medication. 9. Hyperlipidemia. Continue with Zocor.
[2016-06-24] MEDS: MORPHINE IV PRN ×2 (17:50→22:11)
[2016-06-24] MEDS: LANTUS SUBQ SCH (22:03)
[2016-06-24] MEDS: ZOCOR PO SCH (22:03)
[2016-06-24] MEDS: MIRAPEX PO SCH (22:03)
[2016-06-24] MEDS: REMERON PO SCH (22:04)
[2016-06-25] MEDS: HUMALOG SUBQ SCH ×3 (04:03→12:34)
[2016-06-25 06:31] LABS: MANUAL DIFF NEEDED? NO
[2016-06-25 06:47] LABS: BASO% 0.5 % (0.0-0.8); EOS# 0.07 X1000 (0.0-0.7); EOS% 1.7 % (0.0-10.0); HEMATOCRIT 31.4 % (37.0-47.0); LYMPH% 39.1 % (20.5-51.1); MCH 29.5 PG (27-31); MCHC 31.8 g/dL (33-37); MCV 92.6 FL (81-99); MONO# 0.48 X1000 (0.11-0.59); MONO% 11.7 % (1.7-9.3); PLT 119 X1000 (130-400); RBC 3.39 XMIL (4.2-5.4)
[2016-06-25 06:58] LABS: ALBUMIN 3.1 g/dL (3.5-5.0); CALCIUM 8.5 mg/dL (8.8-10.2); TOTAL BILIRUBIN 0.27 mg/dL (0.20-1.00); TOTAL PROTEIN 5.6 g/dL (6.3-8.3)
[2016-06-25] MEDS: PRILOSEC PO SCH (07:27)
[2016-06-25] MEDS: APRESOLINE PO SCH ×2 (08:45→13:49)
[2016-06-25] MEDS: IMDUR PO SCH (08:45)
[2016-06-25] MEDS: XANAX PO SCH ×2 (08:45→13:49)
[2016-06-25] MEDS: NORCO-10 PO PRN (08:45)
[2016-06-25] MEDS: CELEXA PO SCH (08:45)
[2016-06-25] MEDS: PRINIVIL PO SCH (08:46)
[2016-06-25] MEDS: RANEXA PO SCH (08:46)
[2016-06-25] MEDS: HYDROCHLOROTHIAZIDE PO SCH (08:46)
--- NOTE | 2016-06-25 10:28 | PROGRESS NOTE ---
DATE: 06/25/2016 SUBJECTIVE: Ms. Ponce is awake and alert. She reports some discomfort in her left flank, sometimes sharp pain associated with movement, particularly twisting the trunk. She believes this has been present for the last few days. This does not seem to be visceral pain. She continues to have diffuse aches and pains at baseline. She has not had any more episodes of collapse. While here in the hospital, with medicines dispensed as scheduled, she seems to be very stable. As discussed with Dr. Lora this morning, I think we can continue current medication regimen, and get her ready for discharge with physical therapy. Thanks for allowing me to follow Ms. Ponce.
[2016-06-25] MEDS: MORPHINE IV PRN (12:34)
[2016-06-25 13:22] VITALS: BP 118/61
[2016-06-25] MEDS: FLEXERIL PO PRN (13:49)
--- NOTE | 2016-06-25 16:49 | DISCHARGE SUMMARY ---
ADMISSION DATE: 06/22/2016 DISCHARGE DATE: 06/25/2016 CONSULTATIONS: Dr. Alan Harper with Neurology. PERTINENT PROCEDURES: Head CT showed no hemorrhage, mild atrophy. DISCHARGE DIAGNOSES: 1. Falls of questionable etiology, follow by Neurology. They had no acute suggestions or recommendations for now. Possibly related to polypharmacy. 2. She has had at least 20 surgeries in the past because of problems at the level of her neck and back as well as lower extremity weakness related to multiple surgeries. Stable. 3. Chronic kidney disease at baseline. Continue to follow with Nephrology upon discharge. 4. Hyperkalemia resolved. 5. Hypertension stable. 6. Anemia of chronic disease. Aware. 7. Chronic neck and back pain with multiple surgeries. Continue [place]. 8. Restless legs syndrome. Continue Mirapex. 9. Anxiety. Continue Xanax. 10. Hyperlipidemia. Continue Zocor. HOSPITAL COURSE: Briefly, Ms. Ponce is a 72-year-old female who presented to the ED stating that she has been feeling weird in her chest although she does not necessarily describe fluttering or palpitations. She just had an odd feeling that was accompanied by frequent falls. Patient has had 20+ back and neck surgeries. So she did note that the falls may be related to weakness in her lower extremities. She denied any overt loss of consciousness. However, she made remarks such as she was turning to put coffee on the table and the next thing she knew she was on the ground. She is somewhat of a poor historian. Unable to further describe her episode. She also stated that there was some mention either by her family or Dr. Metcalf of possible memory loss or dementia. She was alert and oriented x4. She did not appear to have any short-term memory loss issues. She does have a diagnosis of coronary artery disease with 2 previous myocardial infarctions, COPD, chronic arthritis, chronic neck and back pain, seizures, anxiety, depression with previous suicidal ideation and inpatient stay for depression, diabetes mellitus type 2, noninsulin dependent, hypertension. CT of the head was obtained in the emergency room, which showed mild atrophy and no acute intracranial process. Chest x-ray did not show any acute abnormality. Laboratory data on initial exam was grossly normal. Patient's blood sugars were monitored closely because she does suffer from hypoglycemia as well as over-sedation with medications such as [place] and benzodiazepine and/or weakness to her lower extremities related to multiple back surgeries. Dr. Harper was consulted. She demonstrated good power on bedside testing with Dr. Harper. He also questioned episodes of collapse with seizure, hypoglycemia and/or both but she is not currently on any seizure medication. He also felt the patient's polypharmacy may be contributing to some of her problems. He did not have any urgent suggestions. While here in the hospital with medicines dispensed as scheduled the patient has been very stable. Dr. Harper discussed with Dr. Lora. He felt that they could continue her current medication regimen and get her ready for discharge to physical therapy. Patient is being discharged home today. VITAL SIGNS: Temperature is 97.8 degrees, heart rate 78, respirations 16, O2 is 99% on room air. DISCHARGE DIET: Diabetic DISCHARGE MEDICATIONS: 1. Prilosec 20 mg p.o. daily. 2. [place] 10/325, 1 mg p.o. t.i.d. p.r.n. 3. [place] 25 mg p.o. t.i.d. 4. Celexa 20 mg p.o. q.a.m. 5. Flexeril 10 mg p.o. t.i.d. 6. Hydrochlorothiazide 25 mg p.o. q.a.m. 7. Imdur 30 mg p.o. q.a.m. 8. Humalog 12 units subcu before meals. 9. Lantus 20 units subcutaneously at bedtime. 10. Lisinopril 10 mg p.o. q.a.m. 11. Pramipexole dihydrochloride 0.2 mg p.o. at bedtime. 12. Ranexa 500 mg p.o. q.12. 13. Remeron 45 mg p.o. at bedtime. 14. Simvastatin 20 mg p.o. at bedtime. 15. Xanax 1 mg p.o. t.i.d. FOLLOWUP: The patient is being discharged home. She will need to follow up with her primary care physician Dr. Benny Metcalf in 7-10 days. Patient can return to the ED for any worsening of symptoms. DISCHARGE INSTRUCTIONS: She has been educated on polypharmacy problems and education handout and to take all medications as prescribed. Patient can return to the ED for any worsening of symptoms. DISCHARGE TIME: Thirty minutes. Dictated by JEFERSON Emanuel for Emil Navas MD MTDD
== END 2016-06-25 16:37 | disposition home or self-care (01) | DRG 92 ==
LOC: EDBD → SUPCPDRO 16:00 → ED 16:00 → 4N 23:13
PROVIDERS: ATTEND Internal Medicine
DX: R29.6 Repeated falls (principal); I50.32 Chronic diastolic (congestive) heart failure; I13.0 Hypertensive heart and chronic kidney disease with heart failure and stage 1 through stage 4 chronic kidney disease, or unspecified chronic kidney disease; E11.22 Type 2 diabetes mellitus with diabetic chronic kidney disease; E11.42 Type 2 diabetes mellitus with diabetic polyneuropathy; J44.9 Chronic obstructive pulmonary disease, unspecified; D63.8 Anemia in other chronic diseases classified elsewhere; N18.9 Chronic kidney disease, unspecified; I25.10 Atherosclerotic heart disease of native coronary artery without angina pectoris; I25.2 Old myocardial infarction; E78.5 Hyperlipidemia, unspecified; K21.9 Gastro-esophageal reflux disease without esophagitis; G25.81 Restless legs syndrome; M19.90 Unspecified osteoarthritis, unspecified site; F41.9 Anxiety disorder, unspecified; F32.9 Major depressive disorder, single episode, unspecified; Z79.899 Other long term (current) drug therapy; Z79.4 Long term (current) use of insulin; Z86.14 Personal history of Methicillin resistant Staphylococcus aureus infection; Z91.81 History of falling; Z82.49 Family history of ischemic heart disease and other diseases of the circulatory system; Z83.3 Family history of diabetes mellitus; Z82.3 Family history of stroke; T39.1X5A Adverse effect of 4-Aminophenol derivatives, initial encounter; T42.4X5A Adverse effect of benzodiazepines, initial encounter
CPT/HCPCS: 70450; 71020; 80048; 80053; 81001; 82009; 82550; 82805; 82948; 83605; 84443; 84484; 85025; 85610; 85730; 87040; 93005; 93010; 96374; 96375; G0480; J0360; J1170; J1815; J2270; J2405; P9612; 80320; 80324; 80345; 80346; 80349; 80353; 80358; 80361; 80365; 83992; 97116-GP; 97530-GP

== ENCOUNTER 2016-07-26 20:50 | Inpatient (IN) ==
[2016-07-26] MEDS ORDERED: D50W SYRINGE ONE (20:59)
[2016-07-26] MEDS ORDERED: GLUCAGON ONE (21:01)
[2016-07-26] MEDS ORDERED: STERILE WATER INJ. ONE (21:01)
[2016-07-26] MEDS ORDERED: XYLOCAINE 1% ONE (21:05)
[2016-07-26] MEDS ORDERED: XYLOCAINE 2% ONE (21:05)
[2016-07-26] MEDS ORDERED: D50W SYRINGE IV ONE (21:47)
[2016-07-26] MEDS ORDERED: XYLOCAINE-MPF 2% INJ ONE (21:47)
[2016-07-26] MEDS ORDERED: DEXTROSE IV ONE (23:00)
[2016-07-26] MEDS ORDERED: D10W 250 ML IV SCH (23:10)
[2016-07-26] MEDS ORDERED: MORPHINE ONE (23:36)
[2016-07-26] MEDS ORDERED: MORPHINE IV ONE (23:39)
[2016-07-26 23:46] LABS: BASO% 0.1 % (0.0-0.8); EOS# 0.09 X1000 (0.0-0.7); EOS% 0.9 % (0.0-10.0); HEMATOCRIT 35.2 % (37.0-47.0); HEMOGLOBIN 11.5 g/dL (12.0-16.0); IMM GRAN# 0.03 X1000 (0.0-0.04); IMM GRAN% 0.3 % (0.0-0.5); LYMPH# 0.91 X1000 (1.2-3.4); LYMPH% 9.4 % (20.5-51.1); MANUAL DIFF NEEDED? NO; MCH 30.2 PG (27-31); MCHC 32.7 g/dL (33-37); MCV 92.4 FL (81-99); MONO% 3.1 % (1.7-9.3); MPV 10.5 FL (7.4-10.4); NEUT% 86.2 % (42.2-75.2); PLT 148 X1000 (130-400); RBC 3.81 XMIL (4.2-5.4)
[2016-07-26 23:49] LABS: AGAP 5; ALBUMIN 2.6 g/dL (3.5-5.0); ALKALINE PHOSPHATASE 56 U/L (32-104); BUN 14 mg/dL (8-22); CALCIUM 5.8 mg/dL (8.8-10.2); CHLORIDE 115 mmol/L (98-107); COSMO 271; GOT 13 U/L (10-30); GPT 7 U/L (10-36); POTASSIUM 3.3 mmol/L (3.5-5.1); SODIUM 134 mmol/L (136-145); TCO2 14 mmol/L (25-35); TOTAL BILIRUBIN 0.17 mg/dL (0.20-1.00); TOTAL PROTEIN 4.8 g/dL (6.3-8.3)
[2016-07-27] MEDS ORDERED: MORPHINE IV ONE (00:04)
[2016-07-27] MEDS ORDERED: CALCIUM GLUCONATE IV PUSH ONE (00:11)
[2016-07-27 00:18] LABS: ALLEN TEST YES; BE -8.1 mmoll (-3.0-3.0); BLOOD TYPE ARTERIAL; DRAW SITE R RADIAL; METHB 1.9 % (0.0-1.5); O2(CT) 14.3 mL/dL (15.0-23.0); PCO2(98.6) 44 mmHg (35-45); PO2(98.6) 116 mmHg (60-100); SAMPLE BLOOD; THB 10.5 g/dL (11.5-17.4); pH(98.6) 7.24 (7.35-7.45)
[2016-07-27 00:19] LABS: MODALITY CANNULA
[2016-07-27 00:40] LABS: URINE CULTURE NEEDED? NO; URINE MICRO REVIEW NEEDED? NO; URINE SOURCE CATH
[2016-07-27 00:44] LABS: BILIRUBIN URINE NEGATIVE (NEGATIVE); BLOOD URINE NEGATIVE (NEGATIVE); COLOR YELLOW; GLUCOSE URINE 300 mg/dL (NEGATIVE); LEUKOCYTES URINE NEGATIVE (NEGATIVE); NITRITE URINE NEGATIVE (NEGATIVE); PH URINE 5.5; PROTEIN URINE NEGATIVE (NEGATIVE); SP GRAVITY URINE 1.009; TURBIDITY URINE CLEAR (CLEAR); UROBILINOGEN URINE NORMAL (NORMAL)
[2016-07-27 00:46] LABS: UR EPITHELIAL CELLS <10 /HPF (<10); URINE BACTERIA NEGATIVE /HPF; URINE RBC <10 /HPF (<10); URINE WBC <10 /HPF (<10)
[2016-07-27] MEDS ORDERED: CALCIUM GLUCONATE 1 GM in NS 50 ML IV ONE (01:00)
[2016-07-27] MEDS ORDERED: ZOFRAN IV PRN (01:08)
[2016-07-27] MEDS ORDERED: D5W + KCL 20 MEQ 1,000 ML IV ONE (01:08)
[2016-07-27] MEDS ORDERED: KLOR-CON PO ONE (01:08)
[2016-07-27] MEDS ORDERED: TYLENOL PO PRN (01:08)
[2016-07-27] MEDS ORDERED: KLOR-CON ONE (01:31)
[2016-07-27] MEDS ORDERED: PEPCID ONE (01:31)
[2016-07-27] MEDS ORDERED: HUMALOG ONE (01:32)
[2016-07-27] MEDS: HUMALOG SUBQ SCH ×6 (01:40→21:44)
[2016-07-27] MEDS: LOVENOX SUBQ SCH ×2 (01:43→21:32)
[2016-07-27] MEDS: PEPCID PO SCH ×3 (01:45→21:30)
[2016-07-27 01:47] LABS: HEMOGLOBIN A1C 5.3 % (4.8-6.0)
[2016-07-27 01:53] LABS: MAGNESIUM 1.4 mg/dL (1.5-2.7)
--- NOTE | 2016-07-27 04:06 | HISTORY AND PHYSICAL ---
REASON FOR ADMISSION: Profound hypoglycemia and generalized weakness. HISTORY OF PRESENT ILLNESS: Ms. Jessica Ponce is a 76-year-old lady well known to our service. Last admitted by me on 06/22/2016 for generalized weakness, falls, and dizziness. She comes in today after being found to be very lethargic, weak, and somewhat confused, by her daughters. They checked her blood sugar. It was reportedly less than 20. EMS was called. They were unable to get any IV access. They tried to give her oral glucose with minimal success. She was brought into the ER. Blood sugar was 35. She had a couple accesses. She had to have an intraosseous access and central line access placed. She was given D 50 currently. Her last blood sugar went up to 105 and the most recent 1 is 200 at this time. She is alert and oriented. REVIEW OF SYSTEMS: The patient complains of worsening lower back pain which has been chronic for many years. She admits also to lower extremity weakness which has been chronic for many years. No diarrhea. No nausea, vomiting, or GI complaints. No cardiorespiratory complaints. Otherwise, 12 system review is negative. Positive findings per HPI. No polyuria or polydipsia. PAST MEDICAL HISTORY: Diastolic heart failure, hypertension, hyperlipidemia, coronary artery disease, COPD, reflux disease, arthritis, chronic neck and back pain, seizures, depression, type 2 diabetes, and a prior history of MRSA. PAST SURGICAL HISTORY: Cholecystectomy, hysterectomy. 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 ALLERGIES: Compazine, codeine, adhesives, Ultram, Toradol. FAMILY HISTORY: Notable for drug and alcohol abuse, type 2 diabetes, coronary artery disease, hypertension, and strokes. SOCIAL HISTORY: The patient lives with her 2 daughters. She is a . She denies alcohol or illicit drug use. No tobacco use. HOME MEDICATIONS: Patient is on Xanax 1 mg t.i.d., Celexa 20 mg q.a.m., Flexeril 10 mg t.i.d., Apresoline 20 mg t.i.d., hydrochlorothiazide 25 mg q.a.m., hydrocodone 1 tablet 10 mg t.i.d. p.r.n., Lantus 20 units daily, Humalog 12 units q.a.c., Imdur 30 mg q.a.m., lisinopril 10 mg daily, Remeron 45 mg at bedtime, omeprazole 20 mg daily, pramipexole 0.125 mg daily, Ranexa 500 mg q.12 hours, Zocor 20 mg at bedtime. PHYSICAL EXAMINATION: GENERAL: Elderly, woman who is in mild distress from the pain in her back. VITAL SIGNS: Her blood pressure was elevated at 214/95, heart rate 75, respirations 20, 100% on 2 L. She is afebrile. HEENT: Head is normocephalic, atraumatic. Eyes: PERRLA, EOMI. She is anicteric, not pale. ENT and oropharynx exam grossly normal. No central cyanosis. NECK: Supple. No JVD. No carotid bruit or thyromegaly. CHEST: Clear to auscultation with good entry in both lung velez. CARDIOVASCULAR: First and second heart sounds heard. No gallops, murmurs, or rubs. Rhythm is regular. ABDOMEN: Protuberant, soft. No tenderness noted, surprisingly. No rebound or guarding noted. No masses. Bowel sounds are hypoactive. RECTAL: Examination is deferred. EXTREMITIES: Patient has an IO in her left bob. No edema, clubbing, or peripheral cyanosis. The pulses in her upper extremities are symmetrical with good volume distally. However, lower extremity pulses, the right pulse has good volume, is more probable. The left one is somewhat diminished but no signs of peripheral cyanosis. The left foot appears to be slightly cooler than the right, however. NEUROLOGICAL: No focal deficits appreciated. SKIN: Intact. No breakdown, lesions, or erythema. MUSCULAR: Examination is grossly normal. LABORATORY WORK: White count is 9000, hemoglobin and hematocrit 11 and 35, platelets 148,000 with a normal differential. Sodium is 134, potassium 3.3, bicarb 14, with an anion gap of only 5, BUN 14, creatinine 0.7, glucose is now is 138, calcium is 5.8. Albumin is 2.6, therefore corrected will be 6.92. Globulin is 2.2. PH 7.24, pCO2 44, PO2 of 116. This was done on 2 L. ASSESSMENT: 1. Severe hypoglycemia, secondary to poor clearance of insulin dose. The patient says she has not skipped any meals, there has been no change in her medications. We will admit patient and start patient on D5 water with potassium to correct her hypokalemia noted. The patient have an A1c assessed. If there has been any significant drop in her prior A1c, then we will need to either decrease the insulin that she is taking or think of alternative treatment. 2. Non-anion gap acidosis. This could be due to chronic diarrhea which the patient does not have or due to unmeasured Cations (i.e., hypermagnesemia or hypergammaglobulinemia). The latter is normal so that rules that out. Urine electrolytes have been ordered and these need to be followed. 3. Hypocalcemia, etiology could be nutritional (i.e., vitamin D deficiency) or urinary losses. The patient is actually on hydrochlorothiazide which will preclude any further losses. If there is evidence that there is significant urinary losses, one may also need to consider renal tubular acidosis may be causing this. The patient was started on oral calcium replacement. She has no evidence of tetany at this time. 4. Type 2 diabetes by A1c. Continue only sliding scale. Very conservative sliding scale, only give insulin if blood sugar is greater than 200. 5. Hypertension, not well controlled. Continue with home medications. Added on Norvasc and we will increase accordingly. Get patient pain medication because she was in pain in her back and we will see if this corrects the hypertension. 6. Coronary artery disease. Continue with Ranexa and Imdur. Troponins were ordered. I will order 1 now. Electrocardiogram is pending at this time. I will discontinue the patient's Ranexa because of hypocalcemia which can increase the risk of QT prolongation with Ranexa on board. We will continue with Imdur and give as needed morphine if needed for pain. Also, we will consider starting patient on aspirin being that she is not on any despite having coronary artery disease. Also, I suspect the patient has underlying peripheral arterial disease based on the clinical findings noted. Alternatively, instead of aspirin, Plavix may be a better option since she has diffuse vascular disease. 7. Chronic pain syndrome. 8. Hyperlipidemia. 9. Chronic diastolic heart failure. 10. Restless legs syndrome. Continue with Mirapex. 11. Chronic inflammation. cc: MD Benny Nuñez MD MTDD
[2016-07-27] MEDS: MORPHINE IV PRN (05:30)
--- NOTE | 2016-07-27 05:54 | PROVIDER DOCUMENTATION ---
This chart was entered by Feliciano Motley Scribe, acting as scribe for Adam Mccarty MD. HPI-General Adult - General Chief Complaint: Low Blood Sugar Stated Complaint: hypoglycemia Time Seen by Provider: 07/26/16 21:00 Source: EMS Unable to obtain history due to:: altered Allergies/Adverse Reactions: Patient Allergies Allergy/AdvReac Type Severity Reaction Status Date / Time prochlorperazine edisylate * Allergy Severe SEIZURES Verified 06/22/16 16:17 [From Compazine] codeine [Codeine] Allergy Mild ITCHING Verified 06/22/16 16:17 prochlorperazine maleate * Allergy Mild ITCHING Verified 06/22/16 16:17 [From Compazine] adhesive AdvReac Intermediate ITCHING Verified 06/22/16 16:17 tramadol AdvReac Mild ANXIETY Verified 06/22/16 16:17 tramadol HCl * AdvReac Mild ANXIETY Verified 06/22/16 16:17 [From Ultracet] ketorolac AdvReac Unknown Unknown Verified 06/22/16 16:17 Home Medications: Home Medication List Medication Instructions Recorded Confirmed Last Taken Type Omeprazole [Prilosec] 20 mg PO DAILY@0700 #0 capsule 10/22/13 06/23/16 06/16/16 Rx Alprazolam [Xanax] 1 mg PO TID #90 tablet 06/25/16 Unknown Rx Citalopram [Celexa] 20 mg PO QAM #30 tablet 06/25/16 Unknown Rx Cyclobenzaprine [Flexeril] 10 mg PO TID #30 tablet 06/25/16 Unknown Rx Hydralazine [Apresoline] 25 mg PO TID #90 tablet 06/25/16 Unknown Rx Hydrochlorothiazide 25 mg PO QAM #30 tablet 06/25/16 Unknown Rx Hydrocodone/Acetaminophen [Anderson 1 each PO TID PRN #30 tablet 06/25/16 Unknown Rx 10-325 Tablet] Insulin Glargine [Lantus] 20 unit SUBQ QHS #1 insuln.pen 06/25/16 Unknown Rx Insulin Lispro [Humalog] 12 unit SQ AC #2 cartridge 06/25/16 Unknown Rx Isosorbide Mononitrate E.r. [Imdur] 30 mg PO QAM #30 tablet 06/25/16 Unknown Rx Lisinopril 10 mg PO QAM #30 tablet 06/25/16 Unknown Rx Mirtazapine [Remeron] 45 mg PO QHS #30 tablet 06/25/16 Unknown Rx Pramipexole Di-HCl [Pramipexole 0.125 mg PO QHS #30 tablet 06/25/16 Unknown Rx Dihydrochloride] Ranolazine E.r. [Ranexa] 500 mg PO Q12H #60 tablet 06/25/16 Unknown Rx Simvastatin 20 mg PO QHS #30 tablet 06/25/16 Unknown Rx - History of Present Illness -Gen Adult Nature of Presenting Problems: Pt is a 76 yof who presents to ER via EMS for hypoglycemia. EMS reports that pt had a B/S of 38 bellhop captain, but pt's B/S was less than 35 in ED, was given dextrose at 2104 and had a B/S of 104 at 2111. On arrival, pt had decreased responsiveness. Location of Pain/Injury: reports: none Pain Radiation: reports: no radiation Quality of Pain: reports: none Severity: reports: severe Onset/Duration: reports: unsure, just prior to arrival Timing: reports: still present Associated Symptoms: reports: weakness, trouble walking, other (hypoglycemic). denies: anxiety, arm pain, back/neck pain, chest pain, constipation, cough, diaphoresis, diarrhea, dizziness, EENT symptoms, fatigue, fever/chills, genitourinary problems, headaches, heartburn, joint pain, seizure, shortness of breath, sensory/motor loss, pain with inspiration, swelling/mass in abdomen, syncope, vomiting Similar Symptoms Previously?: No Recently seen or treated by another doctor?: No - Diabetes Related Context Context: reports: low blood sugar Review of Systems - Adult - REVIEW OF SYSTEMS - ADULT ROS:: limited per condition Constitutional: denies: chills, fever, fatique, night sweats, weight gain, weight loss Eyes: reports: no symptoms reported Ears, Nose, Mouth & Throat: reports: no symptoms reported Cardiovascular: reports: no symptoms reported Respiratory: reports: no symptoms reported Gastrointestinal: reports: no symptoms reported Genitourinary: reports: no symptoms reported Musculoskeletal: reports: no symptoms reported Integumentary: reports: no symptoms reported Neurological: reports: no symptoms reported Psychiatric: reports: no symptoms reported Endocrine: reports: no symptoms reported Hematologic/Lymphatic: reports: no symptoms reported Allergic/Immunologic: reports: no symptoms reported All Other Systems: Reviewed and Negative Past History - Adult - PAST MEDICAL HISTORY-ADULT Review of Records: reports: Nursing Assessment Review, Medications Reviewed Cardiovascular: reports: CHF, HTN, hyperlipidemia, murmur (heart) Respiratory: reports: COPD Gastrointestinal: reports: GERD Musculoskeletal: reports: arthritis, chronic pain, neck/back injury Neurological: reports: Seizures/Epilepsy Psychiatric: reports: anxiety, depression Endocrine/Immune: reports: Diabetes Other Conditions: reports: MRSA - PRIOR SURGERIES/PROCEDURES Surgical/Procedure History: reports: 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), hysterectomy, orthopedic (extremity), back/neck (neck and back Sx), other (tumors removed from the left arm and) - IMMUNIZATION STATUS Childhood Immunizations: See Nurse Assessment Flu Vaccine: See Nurse Assessment - FAMILY HISTORY Family History: reviewed, not pertinent, mental illness (suffers from depression ) Physical Exam-General - PHYSICAL EXAM-ADULT Initial Vital Signs Reviewed: Yes - CONSTITUTIONAL General Appearance: alert, severe distress, lethargic, slow to respond, obtunded . negative: appears well, no apparent distress, mild distress, moderate distress, cachetic, obese, thin, anxious, combative - NECK Neck: non-tender, full range of motion, other (prominently flat neck veins). negative: supple - RESPIRATORY Respiratory: chest non-tender, lungs clear, crackles (prominent basilar crackles ). negative: normal breath sounds - CARDIOVASCULAR Cardiovascular: normal peripheral pulses, regular rate, rhythm, other (Pt has prominently flat neck veins and diminised femoral pulses, despite her B/P of 215 ). negative: bradycardia, tachycardia, irregularly irregular - MUSCULOSKELETAL Peripheral Pulses: femoral (R): 0 (diminished), femoral (L): 0 (diminished) - NEUROLOGIC Neurologic: international marketing specialist II-XII nml as tested, grossly normal, no motor/sensory deficits - PSYCHIATRIC Psych/Mental Status: normal mood/affect, normal thought content, normal thought process, oriented x 3 (after central line and return from CT) Progress - PLAN OF CARE/RESULTS Progress/Plan/Lab Results: Vital Signs - 8 hr 07/26/16 21:22 Pulse Rate 70 Respiratory Rate 16 Blood Pressure 224/99 O2 Sat by Pulse Oximetry 96 Orders Category Date Time Status Dextrose 50% Syringe [D50w Syringe] Med 07/26/16 20:59 Discontinued 50 ml .ROUTE .STK-MED ONE Dextrose 50% Syringe [D50w Syringe] Med 07/26/16 21:47 Discontinued 50 ml IV NOW ONE Glucagon Med 07/26/16 21:01 Discontinued 1 mg .ROUTE .STK-MED ONE Lidocaine 1% [Xylocaine 1%] Med 07/26/16 21:05 Discontinued 20 ml .ROUTE .STK-MED ONE Lidocaine 2% Pf [Xylocaine-Mpf 2%] Med 07/26/16 21:47 Discontinued 5 ml INJ NOW ONE Lidocaine 2% [Xylocaine 2%] Med 07/26/16 21:05 Discontinued 20 ml .ROUTE .STK-MED ONE Water, Sterile Inj [Sterile Water Inj] Med 07/26/16 21:01 Discontinued 10 ml .ROUTE .STK-MED ONE EKG [EKG] Stat Ther 07/26/16 21:57 Ordered Result Diagrams: 07/26/16 23:30 07/26/16 22:10 - EKG 1 Time of EKG reading by physician:: 23:54 EKG Read and Signed by:: Adam Mccarty EKG Interpretation (*Must complete 3 of following elements*): Abnormal (R superior axis deviation; Pulmonary disease pattern; Septal infarct, age undetermined; ST & T wave abnormality, consider inferior ischemia) Rate: 67 Rhythm: Undetermined rhythm - XRAY 1 XRAY: Bilateral XRAY Study: Chest Impression: See EMR Report XRAY Interpretation: Catheter placement confirmed; No pneumothorax - CONSULTS/PCP/HOSPITALIST Notification #1 *Consult/PCP/Hospitalist*: Dr. Baker (Hospitalist) Time Discussed: 22:57 Consult Disposition: Admit Procedures - CENTRAL LINE Time-Out Verification Completed?: Yes Central Line Lumen: triple Central Line Procedure Prep: Chloraprep, Sterile Body Drape Placed, Antibiotic- coated Catheter Used Patient Position (To prevent Air Embolism): Trendelenburg (SC/IJ) Central Line Position: subclavian (R) Ultrasound Guided?: No Hat, mask, sterile gown, & sterile gloves worn by physician?: Yes Site scrubbed vigorously for 30 seconds? (Groin: 2 min): Yes Anesthetic: 2%, Lidocaine/Xylocaine Volume of Anesthetic (ml's): 5 Post Procedure: Sutured in place, Sterile field maintained, BioPatch placed, Sterile dressing applied, Blood aspirated from each lumen, Placement verfied by XRAY Procedure Comment: Attempt made for R femoral vein without success. Departure - Departure Time of Disposition Decision: 22:15 DIAGNOSIS: Hypoglycemia, Diabetes Disposition: ADMITTED INPATIENT 09 Certified Medical Emergency: Emergent Condition: Fair Additional Freetext Instructions: ED Follow Up Instructions: You have been treated by a care provider in the Emergency Department. These instructions are being provided to you so you can have an understanding of how to care for yourself upon discharge. Upon discharge from the Emergency Department, you are responsible for making arrangements for follow-up care by a physician of your choice. Take all prescribed medications as directed. Return to the Emergency Department immediately for any new or worsening symptoms. You may call the Physician Referral phone number at [phone] to obtain a list of Physicians who are taking new patients. Referrals and Follow-Ups: None,PCP [Primary Care Provider] - - Critical Care Note Total Time (mins): 90 Critical Care Statement: This patient required my direct personal management to treat or rule out processes, the absence of which, could potentiallly result in sudden, clinically significant life or limb threatening deterioration. This chart was documented by the indicated scribe, (Feliciano Motley, Evelina) and accurately reflects the services I performed and decisions made by me, Adam Mccarty MD, as attested by the provider's signature.
[2016-07-27] MEDS: PRILOSEC PO SCH (07:00)
[2016-07-27] MEDS ORDERED: XANAX PO SCH (09:00)
[2016-07-27] MEDS ORDERED: NORVASC PO SCH (09:00)
[2016-07-27] MEDS: HYDROCHLOROTHIAZIDE PO SCH (09:30)
[2016-07-27] MEDS: APRESOLINE PO SCH ×3 (09:30→17:08)
[2016-07-27] MEDS: IMDUR PO SCH (09:30)
[2016-07-27] MEDS: CALTRATE 600 + D PO SCH ×3 (09:30→17:08)
[2016-07-27] MEDS: PRINIVIL PO SCH (09:30)
[2016-07-27] MEDS: PLAVIX PO SCH (09:30)
--- NOTE | 2016-07-27 11:15 | Diag Imaging Result Document ---
PROCEDURE NAME: CHEST-PORTABLE - 07/26/2016 PORTABLE CHEST: COMPARISON: 06/22/2016. FINDINGS: There is a new right subclavian central line with the catheter tip at the cavoatrial junction. There is new widening of the superior mediastinum. There is cardiomegaly. Pulmonary vascularity is distended. No focal infiltrates. No pneumothorax or large effusion. IMPRESSION: Subtle widening of the superior mediastinum. Recommend a repeat chest x-ray or chest CT. Preferably with intravenous contrast.
[2016-07-27] MEDS: XANAX PO SCH ×2 (13:16→17:08)
[2016-07-27] MEDS: ZOCOR PO SCH (21:30)
[2016-07-27] MEDS: MIRAPEX PO SCH (21:31)
[2016-07-28] MEDS: HUMALOG SUBQ SCH ×6 (03:46→21:41)
[2016-07-28 05:16] LABS: MANUAL DIFF NEEDED? NO
[2016-07-28 05:28] LABS: BASO% 0.9 % (0.0-0.8); EOS# 0.23 X1000 (0.0-0.7); EOS% 4.9 % (0.0-10.0); HEMATOCRIT 30.7 % (37.0-47.0); HEMOGLOBIN 9.9 g/dL (12.0-16.0); LYMPH# 1.43 X1000 (1.2-3.4); LYMPH% 30.6 % (20.5-51.1); MCH 29.7 PG (27-31); MCHC 32.2 g/dL (33-37); MCV 92.2 FL (81-99); MONO# 0.51 X1000 (0.11-0.59); MONO% 10.9 % (1.7-9.3); MPV 10.9 FL (7.4-10.4); NEUT% 52.7 % (42.2-75.2); PLT 132 X1000 (130-400); RBC 3.33 XMIL (4.2-5.4)
[2016-07-28] MEDS: PRILOSEC PO SCH ×2 (05:33→06:01)
[2016-07-28] MEDS: MORPHINE IV PRN ×2 (05:33→12:42)
[2016-07-28 06:29] LABS: ALBUMIN 3.4 g/dL (3.5-5.0); CALCIUM 9.2 mg/dL (8.8-10.2); POTASSIUM 5.6 mmol/L (3.5-5.1); TOTAL BILIRUBIN 0.35 mg/dL (0.20-1.00); TOTAL PROTEIN 5.6 g/dL (6.3-8.3)
--- NOTE | 2016-07-28 07:01 | EKG Report ---
Test Performed on : 07/26/2016 9:27:32 PM Test Reason : CP Blood Pressure : / mmHG Vent. Rate : 067 BPM Atrial Rate : 267 BPM P-R Int : 196 ms QRS Dur : 088 ms QT Int : 418 ms P-R-T Axes : 087 218 156 degrees QTc Int : 441 ms Undetermined rhythm Right superior axis deviation Pulmonary disease pattern Septal infarct (cited on or before 17-JUN-2016) ST \T\ T wave abnormality, consider inferior ischemia Abnormal ECG When compared with ECG of 23-JUN-2016 21:22, Current undetermined rhythm precludes rhythm comparison, needs review Questionable change in QRS axis Unconfirmed Result
[2016-07-28] MEDS: APRESOLINE PO SCH ×3 (08:16→16:29)
[2016-07-28] MEDS: PLAVIX PO SCH (08:16)
[2016-07-28] MEDS: CALTRATE 600 + D PO SCH ×3 (08:16→16:29)
[2016-07-28] MEDS: NORVASC PO SCH ×2 (08:17→21:02)
[2016-07-28] MEDS: PEPCID PO SCH ×2 (08:17→20:58)
[2016-07-28] MEDS: IMDUR PO SCH (08:17)
[2016-07-28] MEDS: XANAX PO SCH ×3 (08:17→16:29)
[2016-07-28] MEDS: HYDROCHLOROTHIAZIDE PO SCH (08:17)
[2016-07-28] MEDS: PRINIVIL PO SCH (08:18)
[2016-07-28] MEDS: LANTUS SUBQ SCH (08:34)
[2016-07-28] MEDS ORDERED: BENADRYL PO ONE (10:31)
[2016-07-28] MEDS: NORCO-10 PO PRN ×2 (12:07→21:00)
--- NOTE | 2016-07-28 13:43 | PROGRESS NOTE ---
DATE: 07/28/2016 SUBJECTIVE: This patient states that she is feeling much better. She is not complaining of nausea, vomiting. No dizziness. No fevers, no chills. OBJECTIVE: Vital Signs: Temperature 98.6, pulse 78, respiratory rate 16, blood pressure 165/74, oxygen saturation 98% on 2 L of nasal cannula. HEENT: Head normocephalic. No trauma. PERRLA. Neck: Supple. No JVD. No masses. Central trachea. Chest: Clear to auscultation. No wheezing. No rales. Cardiovascular: RRR. No murmurs. Abdomen: Soft, nontender, nondistended. No hepatosplenomegaly. Extremities: No edema. No clubbing. No cyanosis. Neurological: The patient is alert and oriented x3. No focal neurological deficits. LABORATORY: WBC 4.6, hemoglobin 9.1, hematocrit 30.7, platelets 132. Potassium 5.6, chloride 106, bicarbonate 21, BUN 21, creatinine 1, glucose 158, calcium 9.2. Albumin 3.4. ASSESSMENT AND PLAN: 1. Severe hypoglycemia, likely secondary to high amount of insulin and/or poor clearance of insulin dose. Apparently, as per the patient, she is not skipping any meals and she has not change any medication. For now, I will start this patient on Lantus, 15 units. She used to be on 20 units and also she used to be on pre-meal insulin 12 units. She will get Lantus 15 units q.a.m. and sliding scale insulin. We will continue with pattern of blood sugar. 2. Hypocalcemia, resolved. 3. Type 2 diabetes. Her hemoglobin A1c is 5.3, probably this patient is having at home multiple episodes of hypoglycemia, will monitor. 4. Hypertension, continue with home medication. Norvasc was added to her medications. The blood pressure is still in the 160s. I increased the dose of amlodipine from once a day to twice a day and I will monitor. 5. History of coronary artery disease. Continue with the same with the same management. 6. Chronic pain syndrome. Continue with home medications. 7. Hyperlipidemia. This patient is on simvastatin. 8. Chronic diastolic heart failure. Stable. 9. Restless legs syndrome. Continue with Mirapex. Today, this patient looks much better and she has no symptomatology, I will transfer this patient from the CIC unit to the medical floor. I will continue monitoring the high blood pressure and the blood sugar. cc: Emil Navas MD
--- NOTE | 2016-07-28 16:09 | EKG Report ---
Test Performed on : 07/28/2016 1:58:48 PM Test Reason : chest pain Blood Pressure : / mmHG Vent. Rate : 079 BPM Atrial Rate : 079 BPM P-R Int : 148 ms QRS Dur : 076 ms QT Int : 342 ms P-R-T Axes : 072 -29 034 degrees QTc Int : 392 ms Normal sinus rhythm. Possible Anterior infarct (cited on or before 17-JUN-2016) Abnormal ECG When compared with ECG of 26-JUL-2016 21:27, (Unconfirmed) Previous ECG has undetermined rhythm, needs review (also has arm leads reversed) Questionable change in initial forces of Septal leads Non-specific change in ST segment in Lateral leads T wave inversion no longer evident in Lateral leads Confirmed by Jada BRADY, Seamus Zheng ([id number]) on 07/28/2016 8:11:49 PM
[2016-07-28] MEDS: ZOCOR PO SCH (20:56)
[2016-07-28] MEDS: MIRAPEX PO SCH (20:59)
[2016-07-28] MEDS: LOVENOX SUBQ SCH (21:05)
[2016-07-29] MEDS: MORPHINE IV PRN ×2 (02:26→12:06)
[2016-07-29] MEDS: HUMALOG SUBQ SCH ×6 (03:01→21:08)
[2016-07-29] MEDS: PRILOSEC PO SCH (06:02)
[2016-07-29] MEDS ORDERED: INSULIN PEN NEEDLES ONE (06:31)
[2016-07-29 06:51] LABS: MANUAL DIFF NEEDED? NO
[2016-07-29 07:01] LABS: BASO% 0.7 % (0.0-0.8); EOS# 0.28 X1000 (0.0-0.7); EOS% 6.6 % (0.0-10.0); HEMATOCRIT 29.9 % (37.0-47.0); HEMOGLOBIN 9.7 g/dL (12.0-16.0); LYMPH% 33.1 % (20.5-51.1); MCH 30.3 PG (27-31); MCHC 32.4 g/dL (33-37); MCV 93.4 FL (81-99); MONO% 11.8 % (1.7-9.3); MPV 10.7 FL (7.4-10.4); NEUT% 47.8 % (42.2-75.2); PLT 136 X1000 (130-400)
[2016-07-29 07:26] LABS: AGAP 11; BUN 18 mg/dL (8-22); CALCIUM 9.4 mg/dL (8.8-10.2); CHLORIDE 107 mmol/L (98-107); COSMO 286; POTASSIUM 5.4 mmol/L (3.5-5.1); SODIUM 141 mmol/L (136-145); TCO2 23 mmol/L (25-35)
[2016-07-29] MEDS: CALTRATE 600 + D PO SCH ×3 (08:35→16:31)
[2016-07-29] MEDS: PLAVIX PO SCH (08:35)
[2016-07-29] MEDS: NORVASC PO SCH ×2 (08:35→21:08)
[2016-07-29] MEDS: PRINIVIL PO SCH (08:36)
[2016-07-29] MEDS: APRESOLINE PO SCH ×3 (08:36→21:08)
[2016-07-29] MEDS: CELEXA PO SCH (08:36)
[2016-07-29] MEDS: HYDROCHLOROTHIAZIDE PO SCH (08:36)
[2016-07-29] MEDS: RANEXA PO SCH ×2 (08:36→21:08)
[2016-07-29] MEDS: PEPCID PO SCH ×2 (08:36→21:08)
[2016-07-29] MEDS: IMDUR PO SCH (08:37)
[2016-07-29] MEDS: XANAX PO SCH ×3 (08:45→16:31)
[2016-07-29] MEDS: LANTUS SUBQ SCH (09:41)
[2016-07-29] MEDS: NORCO-10 PO PRN (11:28)
--- NOTE | 2016-07-29 14:03 | PROGRESS NOTE ---
DATE: 07/29/2016 SUBJECTIVE: This patient states that she is feeling much better. She is not complaining of nausea vomiting. No dizziness. No fever. No chills. OBJECTIVE: Vital Signs: Temperature 98.4 degrees, pulse 80, respiratory rate 14, blood pressure 154/76, oxygen saturation 95% on room air. HEENT: Head normocephalic. No trauma. PERRLA. Neck: Supple. No JVD. No masses. Central trachea. Chest: Clear to auscultation. No wheezing. No rales. Cardiovascular: RRR. No murmurs. Abdomen: Soft, nontender, nondistended. No hepatosplenomegaly. Extremities: No edema. No clubbing. No cyanosis. Neurological: The patient is alert and oriented x3. No focal neurological deficits. LABORATORY: WBC 4.2, hemoglobin 9.7, hematocrit 29.9, platelets 136,000. Sodium 141, potassium 5.4, chloride 107, bicarbonate 23, BUN 18, creatinine 0.8, glucose 147, calcium 9.4. ASSESSMENT AND PLAN: 1. Severe hypoglycemia. This is likely secondary to high amount of insulin and/or poor clearance of insulin dose. Apparently this patient is not skipping any meals and she did not change any medication. For now, we are going to keep this patient on Lantus 15. She used to be on 20 units and also she used to be on pre-meal insulin 12 units. For now it is acceptable to continue Lantus 15, monitor the way she is eating, and probably I will send her home tomorrow. Also I will probably add metformin to her medications. 2. Hypocalcemia. Resolved. 3. Type 2 diabetes. Hemoglobin A1c 5.3. Probably this patient has been having at home multiple episodes of hypoglycemia. Will monitor. 4. Hypertension. Today I increased the dose of hydralazine from 25 to 50 t.i.d. The blood pressure looks a little bit better. We will continue to monitor. 5. History of coronary artery disease. Continue with the same management. 6. Chronic pain syndrome. Continue with home medication. 7. Hyperlipidemia. This patient is on simvastatin. 8. Chronic diastolic heart failure. Stable. 9. Restless legs syndrome. Continue with Mirapex. cc: Emil Navas MD
[2016-07-29] MEDS ORDERED: HALDOL IV ONE (18:18)
[2016-07-29] MEDS ORDERED: HALDOL IV PRN (19:00)
[2016-07-29] MEDS ORDERED: REMERON PO SCH (21:00)
[2016-07-29] MEDS: MIRAPEX PO SCH (21:07)
[2016-07-29] MEDS: LOVENOX SUBQ SCH (21:08)
[2016-07-29] MEDS: ZOCOR PO SCH (21:08)
[2016-07-30] MEDS: HUMALOG SUBQ SCH ×3 (01:17→09:58)
[2016-07-30] MEDS: MORPHINE IV PRN ×2 (02:04→07:44)
[2016-07-30 05:09] VITALS: BP 118/57
[2016-07-30] MEDS: PRILOSEC PO SCH ×2 (05:51→06:05)
[2016-07-30 06:12] LABS: MANUAL DIFF NEEDED? NO
[2016-07-30 06:27] LABS: BASO% 0.6 % (0.0-0.8); EOS# 0.23 X1000 (0.0-0.7); EOS% 4.5 % (0.0-10.0); HEMATOCRIT 27.9 % (37.0-47.0); HEMOGLOBIN 9.2 g/dL (12.0-16.0); LYMPH# 1.39 X1000 (1.2-3.4); LYMPH% 27.1 % (20.5-51.1); MCH 30.2 PG (27-31); MCV 91.5 FL (81-99); MONO# 0.59 X1000 (0.11-0.59); MONO% 11.5 % (1.7-9.3); MPV 10.7 FL (7.4-10.4); NEUT% 56.3 % (42.2-75.2); PLT 136 X1000 (130-400); RBC 3.05 XMIL (4.2-5.4)
[2016-07-30 06:41] LABS: AGAP 11; BUN 16 mg/dL (8-22); CALCIUM 8.4 mg/dL (8.8-10.2); CHLORIDE 106 mmol/L (98-107); COSMO 279; POTASSIUM 4.8 mmol/L (3.5-5.1); SODIUM 139 mmol/L (136-145); TCO2 22 mmol/L (25-35)
[2016-07-30] MEDS: NORCO-10 PO PRN (06:46)
[2016-07-30] MEDS: RANEXA PO SCH (07:44)
[2016-07-30] MEDS: APRESOLINE PO SCH (07:45)
[2016-07-30] MEDS: PLAVIX PO SCH (08:08)
[2016-07-30] MEDS: HYDROCHLOROTHIAZIDE PO SCH (08:08)
[2016-07-30] MEDS: CALTRATE 600 + D PO SCH (08:08)
[2016-07-30] MEDS: XANAX PO SCH (08:08)
[2016-07-30] MEDS: IMDUR PO SCH (08:08)
[2016-07-30] MEDS: PEPCID PO SCH (08:08)
[2016-07-30] MEDS: LANTUS SUBQ SCH (08:08)
[2016-07-30] MEDS: CELEXA PO SCH (08:08)
[2016-07-30] MEDS: PRINIVIL PO SCH (08:09)
[2016-07-30] MEDS: NORVASC PO SCH (08:09)
--- NOTE | 2016-07-31 07:17 | DISCHARGE SUMMARY ---
ADMISSION DATE: 07/27/2016 DISCHARGE DATE: 07/30/2016 CONSULTATIONS: None. PERTINENT PROCEDURES: Chest x-ray showed subtle widening of superior mediastinum. Recommended repeat. DISCHARGE DIAGNOSES: 1. Severe hypoglycemia, resolved with medication changes. 2. Hypocalcemia, resolved. 3. Type 2 diabetes mellitus with a hemoglobin A1c of 5.3. 4. Hypertension, uncontrolled. Hydralazine was increased from 25 to 50 three times a day, stable. 5. Coronary artery disease history. Continue current management. 6. Chronic pain syndrome. Continue with home medications. 7. Hyperlipidemia. Continue statin. 8. Chronic diastolic heart failure, stable. 9. Restless legs syndrome. Continue Mirapex. HOSPITAL COURSE: Briefly, Ms. Ponce is a 76-year-old female known to our service. Last admitted on 06/22/2016 for generalized weakness, falls, and dizziness. Came to the ED after being found to be very lethargic, weak, and somewhat confused by her daughters. They checked her blood sugar. It was reportedly less than 20. EMS was called. They were unable to get any IV access. They tried oral glucose with minimal success. She was brought to the ED. Blood sugar was 35. They did attempt IV access. However, they performed an interosseous access and central line was placed. She was given D50 and her last blood sugar was up to 105. Most recent at the time of her admission was 200. She was awake, alert, and oriented. The patient was admitted for severe hypoglycemia secondary to poor clearance of insulin dose as well as a non-anion gap acidosis and hypocalcemia. Patient has had changes to her diabetes medication. Patient's insulin was decreased to Lantus 15 units subcutaneously q.a.m. Her Humalog was discontinued. She tolerated these changes well, along with her diet. Patient is appropriate for discharge back home today. Temperature is 98.5 degrees, heart rate 79, respirations 15, blood pressure 118/57, O2 is 99% on room air. Blood glucoses have been ranging anywhere from 98-173. DISCHARGE DIET: Diabetic. DISCHARGE MEDICATIONS: 1. Tylenol 650 mg p.o. q.6 hours p.r.n. 2. Xanax 1 mg p.o. t.i.d. 3. Norvasc 5 mg p.o. b.i.d. 4. Celexa 20 mg p.o. q.a.m. 5. Plavix 75 mg p.o. daily. 6. Flexeril 10 mg p.o. t.i.d. 7. Apresoline 25 mg p.o. t.i.d. 8. Hydrochlorothiazide 25 mg p.o. q.a.m. 9. Hunt 10/325 one each p.o. t.i.d. p.r.n. 10. Lantus 15 units subcutaneously q.a.m. 11. Imdur 30 mg p.o. q.a.m. 12. Remeron 45 mg p.o. at bedtime. 13. Prilosec 20 mg p.o. daily. 14. Pramipexole dihydrochloride 0.1 mg p.o. at bedtime. 15. Ranexa 500 mg p.o. q.12 hours. 16. Simvastatin 20 mg p.o. at bedtime. FOLLOWUP: The patient is being discharged home with home health. She will follow up with her primary care physician, Dr. Benny Metcalf, in 7-10 days. DISCHARGE INSTRUCTIONS: The patient is to continue to follow a diabetic diet, to take her Lantus as indicated. She has been instructed she will no longer be on Humalog and she is to check her sugars frequently. Discharge time was greater than 30 minutes. Dictated by JEFERSON Emanuel for Emil Navas MD cc: Emil Navas MD
== END 2016-07-30 12:00 | disposition home health service (06) ==
LOC: ED 20:50 → EDIPHOLD 07-27 00:49 → SUATTDRO 07-27 00:49 → 3S 07-27 10:33 → 4N 07-28 18:55
PROVIDERS: ATTEND Internal Medicine